=== PATIENT | female | born 1940 | race Caucasian/White ===

== ENCOUNTER 2017-07-08 17:13 | Inpatient (IN) | payer MEDICARE, MEDICAID ==
[~2017-07-08] VITALS: Ht 170.2 cm; Wt 77.0 kg
[~2017-07-08 17:13] MED LIST: ALPR-138 PO; CLOP75 PO; HYDR-3533 PO; METO25 PO
[2017-07-08] MEDS ORDERED: VANCOMYCIN INJ 1,000 MG in SODIUM CHLOR 0.9% 250 ML INJ 250 ML IV STA (17:32)
[2017-07-08] MEDS ORDERED: CEFEPIME INJ 2,000 MG in SODIUM CHLORIDE 0.9% INJ 100 ML IV STA (17:32)
[2017-07-08 17:33] VITALS: BP 140/60; PULSE 102; RESP 22; TEMP 103.1; O2SAT 95
--- NOTE | 2017-07-08 17:35 | PD ---
HPI Chief Complaint: Fever Time Seen by Provider: 17:28 Travel History International Travel<30 days: No Contact w/Intl Traveler<30days: No Traveled to known affect area: No History of Present Illness HPI 76-year-old female with history of CHF, hypertension, anxiety, right lower extremity DVT with stent placement who is on Plavix, presents emergency department for evaluation of acute onset fever today approximately 1 hour ago. Patient states she woke up this morning and had some low back pain. She described as an ache. This persisted lightly throughout the day but did not seem to bother her much. She states that all of a sudden she became tremulous and f had chills and body aches with associated shortness of breath. Denies any recent illnesses. Patient has been well up until today when this happened. Denies any chest pain. Denies any nausea, vomiting, or diarrhea. Patient has no other symptoms to report. PFSH Past Medical History Anxiety: Yes Heart Rhythm Problems: Yes (LBBB) Cardiac Catheterization: Yes (x2) Cardiovascular Problems: Yes (LBBB) Chest Pain: Yes Congestive Heart Failure: Yes Coronary Artery Disease: Yes Diminished Hearing: No Hypertension: Yes Immunizations Current: Yes Menopausal: Yes Ovarian Cysts: Yes Past Surgical History Abdominal Surgery: Yes (STANGULATED BOWEL RESECTION X , 2008) Appendectomy: Yes Body Medical Devices: LEFT WRIST METAL Cholecystectomy: Yes Gynecologic Surgery: Yes (FIBROIDS REMOVED) Hysterectomy: Yes Oral Surgery: Yes (1949 T&A) Tonsillectomy: Yes Other Surgery: Yes (SEPTEMBER 2013 FEMORAL STENT) Social History Alcohol Use: Yes (OCCASIONAL) Tobacco Use: No Substance Use: No Allergies-Medications (Allergen,Severity, Reaction): Coded Allergies: meperidine (Unverified Allergy, Severe, Shortness of Breath, 07/08/17) milk (Unverified Allergy, Intermediate, Migraine, 07/08/17) Reported Meds & Prescriptions Reported Meds & Active Scripts Active Lortab 5 mg/325 mg (Hydrocodone/Acetaminophen 5 mg/325 mg) 1 Tab 1 Tab PO Q6H PRN Plavix (Clopidogrel Bisulfate) 75 Mg Tab 75 Mg PO DAILY Reported Metoprolol Tartrate 25 mg (Metoprolol Tartrate) 25 Mg Tab 1 Tab PO HS Xanax (Alprazolam) 0.25 Mg Tab 0.25 Mg PO Review of Systems Except as stated in HPI: all other systems reviewed are Neg Physical Exam Narrative GENERAL: Well-nourished female patient, no acute distress SKIN: Focused skin assessment warm/dry. HEAD: Atraumatic. Normocephalic. EYES: Pupils equal and round. No scleral icterus. No injection or drainage. ENT: No nasal bleeding or discharge. Mucous membranes pink and moist. NECK: Trachea midline. No JVD. CARDIOVASCULAR: Tachycardic rate and rhythm. No murmur appreciated. RESPIRATORY: No accessory muscle use. Diminished throughout, intermittent faint expiratory wheeze. Breath sounds equal bilaterally. GASTROINTESTINAL: Abdomen soft, non-tender, nondistended. Hepatic and splenic margins not palpable. MUSCULOSKELETAL: No obvious deformities. No clubbing. No cyanosis. No edema. NEUROLOGICAL: Awake and alert. No obvious cranial nerve deficits. Motor grossly within normal limits. Normal speech. PSYCHIATRIC: Appropriate mood and affect; insight and judgment normal. Data Data Last Documented VS Vital Signs Date Time Temp Pulse Resp B/P (MAP) Pulse Ox O2 Delivery O2 Flow Rate FiO2 07/08/17 18:33 102 18 140/60 (86) 98 Nasal Cannula 2.00 07/08/17 17:33 103.1 Orders Orders Sepsis Workup Initiated (07/08/17 ) Electrocardiogram (07/08/17 17:32) Complete Blood Count With Diff (07/08/17 17:32) Comprehensive Metabolic Panel (07/08/17 17:32) Prothrombin Time / Inr (Pt) (07/08/17 17:32) Act Partial Throm Time (Ptt) (07/08/17 17:32) Lactic Acid Sepsis Protocol (07/08/17 17:32) Urinalysis - C+S If Indicated (07/08/17 17:32) Influenzae A/B Antigen (07/08/17 17:32) Blood Culture (07/08/17 17:32) Chest, Single Ap (07/08/17:32) Blood Glucose (07/08/17 17:32) Ecg Monitoring (07/08/17 17:32) Iv Access Insert/Monitor (07/08/17 17:32) Oximetry (07/08/17 17:32) Oxygen Administration (07/08/17 17:32) Vancomycin Inj (Vancomycin Inj) (07/08/17 17:32) Cefepime Inj (Maxipime Inj) (07/08/17 17:32) Acetaminophen (Tylenol) (07/08/17 17:45) Sodium Chlor 0.9% 1000 Ml Inj (Ns 1000 M (07/08/17 17:45) Urine Culture (07/08/17 17:40) Piperacil-Tazo 4.5 Gm Premix (Zosyn 4.5 (07/08/17 18:07) Labs Laboratory Tests Test 07/08/17 17:38 07/08/17 17:40 White Blood Count 4.6 TH/MM3 Red Blood Count 3.19 MIL/MM3 Hemoglobin 10.7 GM/DL Hematocrit 31.5 % Mean Corpuscular Volume 98.8 FL Mean Corpuscular Hemoglobin 33.4 PG Mean Corpuscular Hemoglobin Concent 33.8 % Red Cell Distribution Width 14.4 % Platelet Count 104 TH/MM3 Mean Platelet Volume 9.2 FL Neutrophils (%) (Auto) 91.9 % Lymphocytes (%) (Auto) 6.0 % Monocytes (%) (Auto) 0.5 % Eosinophils (%) (Auto) 1.0 % Basophils (%) (Auto) 0.6 % Neutrophils # (Auto) 4.2 TH/MM3 Lymphocytes # (Auto) 0.3 TH/MM3 Monocytes # (Auto) 0.0 TH/MM3 Eosinophils # (Auto) 0.0 TH/MM3 Basophils # (Auto) 0.0 TH/MM3 CBC Comment DIFF FINAL Differential Comment Prothrombin Time 10.5 SEC Prothromb Time International Ratio 1.0 RATIO Activated Partial Thromboplast Time 21.7 SEC Blood Urea Nitrogen 13 MG/DL Creatinine 0.92 MG/DL Random Glucose 106 MG/DL Total Protein 6.6 GM/DL Albumin 3.3 GM/DL Calcium Level 8.2 MG/DL Alkaline Phosphatase 65 U/L Aspartate Amino Transf (AST/SGOT) 15 U/L Alanine Aminotransferase (ALT/SGPT) 16 U/L Total Bilirubin 0.5 MG/DL Sodium Level 142 MEQ/L Potassium Level 3.8 MEQ/L Chloride Level 110 MEQ/L Carbon Dioxide Level 21.0 MEQ/L Anion Gap 11 MEQ/L Estimat Glomerular Filtration Rate 60 ML/MIN Lactic Acid Level 4.4 mmol/L Urine Color YELLOW Urine Turbidity HAZY Urine pH 5.5 Urine Specific [place] 1.009 Urine Protein 30 mg/dL Urine Glucose (UA) NEG mg/dL Urine Ketones NEG mg/dL Urine Occult Blood SMALL Urine Nitrite POS Urine Bilirubin NEG Urine Urobilinogen LESS THAN 2.0 MG/DL Urine Leukocyte Esterase LARGE Urine RBC 12 /hpf Urine WBC /hpf Urine WBC Clumps FEW Urine Squamous Epithelial Cells 1 /hpf Urine Transitional Epithelial Cells <1 /hpf Urine Renal Epithelial Cells <1 /hpf Urine Bacteria MOD /hpf Urine Mucus FEW /lpf Microscopic Urinalysis Comment CATH-CULTURE IND MDM Medical Decision Making Medical Screen Exam Complete: Yes Emergency Medical Condition: Yes Medical Record Reviewed: Yes Differential Diagnosis Sepsis versus pneumonia versus influenza versus UTI Narrative Course 76-year-old female presents emergency department for evaluation of acute onset fever and chills with body aches approximately 1 hour prior to arrival. Patient appears well. She is tachycardic and febrile here. Sepsis workup was initiated. Patient was given Tylenol to reduce fever. She is given broad- spectrum antibiotics and IV normal saline bolus, however will not be given full amount of sepsis protocol due to history of CHF. Laboratory Tests Test 07/08/17 17:38 07/08/17 17:40 White Blood Count 4.6 TH/MM3 Red Blood Count 3.19 MIL/MM3 Hemoglobin 10.7 GM/DL Hematocrit 31.5 % Mean Corpuscular Volume 98.8 FL Mean Corpuscular Hemoglobin 33.4 PG Mean Corpuscular Hemoglobin Concent 33.8 % Red Cell Distribution Width 14.4 % Platelet Count 104 TH/MM3 Mean Platelet Volume 9.2 FL Neutrophils (%) (Auto) 91.9 % Lymphocytes (%) (Auto) 6.0 % Monocytes (%) (Auto) 0.5 % Eosinophils (%) (Auto) 1.0 % Basophils (%) (Auto) 0.6 % Neutrophils # (Auto) 4.2 TH/MM3 Lymphocytes # (Auto) 0.3 TH/MM3 Monocytes # (Auto) 0.0 TH/MM3 Eosinophils # (Auto) 0.0 TH/MM3 Basophils # (Auto) 0.0 TH/MM3 CBC Comment DIFF FINAL Differential Comment Prothrombin Time 10.5 SEC Prothromb Time International Ratio 1.0 RATIO Activated Partial Thromboplast Time 21.7 SEC Blood Urea Nitrogen 13 MG/DL Creatinine 0.92 MG/DL Random Glucose 106 MG/DL Total Protein 6.6 GM/DL Albumin 3.3 GM/DL Calcium Level 8.2 MG/DL Alkaline Phosphatase 65 U/L Aspartate Amino Transf (AST/SGOT) 15 U/L Alanine Aminotransferase (ALT/SGPT) 16 U/L Total Bilirubin 0.5 MG/DL Sodium Level 142 MEQ/L Potassium Level 3.8 MEQ/L Chloride Level 110 MEQ/L Carbon Dioxide Level 21.0 MEQ/L Anion Gap 11 MEQ/L Estimat Glomerular Filtration Rate 60 ML/MIN Lactic Acid Level 4.4 mmol/L Urine Color YELLOW Urine Turbidity HAZY Urine pH 5.5 Urine Specific [place] 1.009 Urine Protein 30 mg/dL Urine Glucose (UA) NEG mg/dL Urine Ketones NEG mg/dL Urine Occult Blood SMALL Urine Nitrite POS Urine Bilirubin NEG Urine Urobilinogen LESS THAN 2.0 MG/DL Urine Leukocyte Esterase LARGE Urine RBC 12 /hpf Urine WBC /hpf Urine WBC Clumps FEW Urine Squamous Epithelial Cells 1 /hpf Urine Transitional Epithelial Cells <1 /hpf Urine Renal Epithelial Cells <1 /hpf Urine Bacteria MOD /hpf Urine Mucus FEW /lpf Microscopic Urinalysis Comment CATH-CULTURE IND Last Impressions Chest X-Ray 07/08/17 1732 Signed Impressions: Service Date/Time: Saturday, July 08, 2017 17:40 - CONCLUSION: No acute disease. Jaciel Tucker MD I discussed patient with my attending physician who has also reviewed the findings and assessed the patient. Findings were also discussed with the family. Pt is with some dyspnea. This is likely due to a metabolic acidosis. At this time she will not be further evaluated for this. Patient will be admitted to [facility]. Diagnosis Primary Impression: Sepsis Qualified Codes: A41.9 - Sepsis, unspecified organism Additional Impressions: UTI (urinary tract infection) Qualified Codes: N30.01 - Acute cystitis with hematuria Dyspnea Qualified Codes: R06.00 - Dyspnea, unspecified Admitting Information Admitting Physician Requests: Admit Condition: Stable Sonya Gregorio July 08, 2017 17:35
[2017-07-08] MEDS ORDERED: ACETAMINOPHEN 500 MG CPLT PO ONE (17:45)
[2017-07-08] MEDS ORDERED: SODIUM CHLOR 0.9% 1000 ML INJ 1,000 ML IV ONE (17:45)
[2017-07-08 17:52] LABS: AUTOMATED NEUTROPHIL # 4.2 TH/MM3 (1.8-7.7); BASOPHIL % 0.6 % (0.0-2.0); HEMATOCRIT 31.5 % (35.0-46.0); HEMOGLOBIN 10.7 GM/DL (11.6-15.3); LYMPHOCYTE # 0.3 TH/MM3 (1.0-4.8); MEAN CELL VOLUME 98.8 FL (80.0-100.0); MEAN CORPUSCULAR HEMOGLOBIN 33.4 PG (27.0-34.0); MEAN CORPUSCULAR HGB CONC 33.8 % (32.0-36.0); MEAN PLATELET VOLUME 9.2 FL (7.0-11.0); MONO % 0.5 % (0.0-8.0); NEUT % 91.9 % (16.0-70.0); PLATELET COUNT 104 TH/MM3 (150-450); RED BLOOD COUNT 3.19 MIL/MM3 (4.00-5.30); RED CELL DISTRIBUTION WIDTH 14.4 % (11.6-17.2); WHITE BLOOD COUNT 4.6 TH/MM3 (4.0-11.0)
[2017-07-08 17:58] LABS: BACTERIA, URINE MOD /hpf; BILIRUBIN, URINE NEG (NEG); BLOOD, URINE SMALL (NEG); GLUCOSE,URINE NEG (NEG); KETONE, URINE NEG (NEG); MUCUS URINE FEW /lpf (OCC); NITRITE,URINE POS (NEG); PH, URINE 5.5 (5.0-8.5); RENAL EPITHELIAL CELLS <1 /hpf; SQUAMOUS EPITHELIAL CELL URINE 1 /hpf (0-5); TRANSITIONAL EPI CELLS, URINE <1 /hpf; URINE COLOR YELLOW (YELLW/STRAW); URINE LEUKOCYTE ESTERASE LARGE (NEG); WHITE BLOOD CELL CLUMPS FEW
--- NOTE | 2017-07-08 17:59 | RADRPT ---
EXAM DATE/TIME: 07/08/2017 17:40 [place] COMPARISON: No previous studies available for comparison. INDICATIONS : Fever MEDICAL HISTORY : None. SURGICAL HISTORY : None. ENCOUNTER: Initial ACUITY: 1 day PAIN SCORE: 0/10 LOCATION: chest FINDINGS: A single view of the chest demonstrates the lungs to be symmetrically aerated without evidence of mas s, infiltrate or effusion. The cardiomediastinal contours are unremarkable. Osseous structures are intact. CONCLUSION: No acute disease. Jaciel Tucker MD on July 08, 2017 at 17:55 Board Certified Radiologist. This report was verified electronically.
[2017-07-08 18:04] LABS: PROTHROMBIN TIME - PATIENT 10.5 SEC (9.8-11.6)
[2017-07-08] MEDS ORDERED: PIPERACIL-TAZO 4.5 GM PREMIX 100 ML IV STA (18:07)
[2017-07-08 18:17] LABS: ALBUMIN 3.3 GM/DL (3.4-5.0); ALT (GPT) 16 U/L (10-53); AST (GOT) 15 U/L (15-37); BLOOD UREA NITROGEN 13 MG/DL (7-18); CALCIUM 8.2 MG/DL (8.5-10.1); CHLORIDE 110 MEQ/L (98-107); CREATININE 0.92 MG/DL (0.50-1.00); GLOMERULAR FILTRATION RATE 60 ML/MIN (>89); GLUCOSE,RANDOM 106 MG/DL (74-106); SODIUM (NA) 142 MEQ/L (136-145)
[2017-07-08 18:19] LABS: ALKALINE PHOSPHATASE 65 U/L (45-117); TOTAL BILIRUBIN ADULT 0.5 MG/DL (0.2-1.0); TOTAL PROTEIN 6.6 GM/DL (6.4-8.2)
[2017-07-08 18:26] LABS: LACTIC ACID SEPSIS PROTOCOL 4.4 mmol/L (0.4-2.0)
[2017-07-08 18:33] VITALS: BP 140/60; PULSE 102; RESP 18; O2SAT 98
--- NOTE | 2017-07-08 18:43 | PD ---
Data Data Last Documented VS Vital Signs Date Time Temp Pulse Resp B/P (MAP) Pulse Ox O2 Delivery O2 Flow Rate FiO2 07/08/17 18:33 102 18 140/60 (86) 98 Nasal Cannula 2.00 07/08/17 17:33 103.1 Orders Orders Sepsis Workup Initiated (07/08/17 ) Electrocardiogram (07/08/17 17:32) Complete Blood Count With Diff (07/08/17 17:32) Comprehensive Metabolic Panel (07/08/17 17:32) Prothrombin Time / Inr (Pt) (07/08/17 17:32) Act Partial Throm Time (Ptt) (07/08/17 17:32) Lactic Acid Sepsis Protocol (07/08/17 17:32) Urinalysis - C+S If Indicated (07/08/17:32) Influenzae A/B Antigen (07/08/17 17:32) Blood Culture (07/08/17 17:32) Chest, Single Ap (07/08/17 17:32) Blood Glucose (07/08/17 17:32) Ecg Monitoring (07/08/17 17:32) Iv Access Insert/Monitor (07/08/17 17:32) Oximetry (07/08/17 17:32) Oxygen Administration (07/08/17 17:32) Vancomycin Inj (Vancomycin Inj) (07/08/17 17:32) Cefepime Inj (Maxipime Inj) (07/08/17 17:32) Acetaminophen (Tylenol) (07/08/17 17:45) Sodium Chlor 0.9% 1000 Ml Inj (Ns 1000 M (07/08/17 17:45) Urine Culture (07/08/17 17:40) Piperacil-Tazo 4.5 Gm Premix (Zosyn 4.5 (07/08/17 18:07) Labs Laboratory Tests Test 07/08/17 17:38 07/08/17 17:40 White Blood Count 4.6 TH/MM3 Red Blood Count 3.19 MIL/MM3 Hemoglobin 10.7 GM/DL Hematocrit 31.5 % Mean Corpuscular Volume 98.8 FL Mean Corpuscular Hemoglobin 33.4 PG Mean Corpuscular Hemoglobin Concent 33.8 % Red Cell Distribution Width 14.4 % Platelet Count 104 TH/MM3 Mean Platelet Volume 9.2 FL Neutrophils (%) (Auto) 91.9 % Lymphocytes (%) (Auto) 6.0 % Monocytes (%) (Auto) 0.5 % Eosinophils (%) (Auto) 1.0 % Basophils (%) (Auto) 0.6 % Neutrophils # (Auto) 4.2 TH/MM3 Lymphocytes # (Auto) 0.3 TH/MM3 Monocytes # (Auto) 0.0 TH/MM3 Eosinophils # (Auto) 0.0 TH/MM3 Basophils # (Auto) 0.0 TH/MM3 CBC Comment DIFF FINAL Differential Comment Prothrombin Time 10.5 SEC Prothromb Time International Ratio 1.0 RATIO Activated Partial Thromboplast Time 21.7 SEC Blood Urea Nitrogen 13 MG/DL Creatinine 0.92 MG/DL Random Glucose 106 MG/DL Total Protein 6.6 GM/DL Albumin 3.3 GM/DL Calcium Level 8.2 MG/DL Alkaline Phosphatase 65 U/L Aspartate Amino Transf (AST/SGOT) 15 U/L Alanine Aminotransferase (ALT/SGPT) 16 U/L Total Bilirubin 0.5 MG/DL Sodium Level 142 MEQ/L Potassium Level 3.8 MEQ/L Chloride Level 110 MEQ/L Carbon Dioxide Level 21.0 MEQ/L Anion Gap 11 MEQ/L Estimat Glomerular Filtration Rate 60 ML/MIN Lactic Acid Level 4.4 mmol/L Urine Color YELLOW Urine Turbidity HAZY Urine pH 5.5 Urine Specific [place] 1.009 Urine Protein 30 mg/dL Urine Glucose (UA) NEG mg/dL Urine Ketones NEG mg/dL Urine Occult Blood SMALL Urine Nitrite POS Urine Bilirubin NEG Urine Urobilinogen LESS THAN 2.0 MG/DL Urine Leukocyte Esterase LARGE Urine RBC 12 /hpf Urine WBC /hpf Urine WBC Clumps FEW Urine Squamous Epithelial Cells 1 /hpf Urine Transitional Epithelial Cells <1 /hpf Urine Renal Epithelial Cells <1 /hpf Urine Bacteria MOD /hpf Urine Mucus FEW /lpf Microscopic Urinalysis Comment CATH-CULTURE IND MDM Supervised Visit with GENNARO: Yes Narrative Course I, Dr. Ha, have reviewed the advance practice practitioner's documentation and am in agreement, met with the patient face to face, made the diagnosis, and the medical decision making was done by me. *My assessment and Findings: This patient came in for fever. Extensive workup was done. She has elevated lactate. Cultures were done and she has significant urinary infection with innumerable white cells. Antibiotics were given. She will be admitted. She has sats at 97% and at this point not reporting dyspnea. She has had some intermittent mild dyspnea today. No pleuritic chest pain. Wiley Ha MD July 08, 2017 18:43
[2017-07-08] MEDS ORDERED: PLAV75TA29 PO (18:56)
[2017-07-08] MEDS ORDERED: METO25TA3 PO (18:56)
[2017-07-08] MEDS ORDERED: ALPR.25 PO (18:56)
[2017-07-08] MEDS ORDERED: NALOXONE HCL 0.4 MG/ML AMP IV PUSH PRN (20:00)
[2017-07-08] MEDS ORDERED: HEPARIN SODIUM - SQ 10,000 UNITS/ML VIAL SQ SCH (20:00)
[2017-07-08] MEDS ORDERED: SODIUM CHLORIDE 0.9% FLUSH 10 ML FLUSH IV FLUSH PRN (20:00)
--- NOTE | 2017-07-08 20:23 | HHI.HP ---
HPI Service [facility] Primary Care Physician Cooper Colon MD Admission Diagnosis SEPSIS; UTI Diagnoses: Travel History International Travel<30 Days: No Contact w/Intl Traveler <30 Da: No Traveled to Known Affected Are: No History of Present Illness 76-year-old female with a past medical history significant for CHF (no recent echo for comparison), peripheral vascular disease, hypertension and anxiety presents to the emergency department for evaluation of sudden onset severe chills/fever. The patient reports that approximately 4 PM this afternoon she had severe shaking and felt as if she could not get warm. She also endorses a shortness of breath and chest pain/tightness that she describes as a substernal pressure that occurred during this time. The patient denies any cough. No abdominal pain. No nausea/vomiting/diarrhea. No dysuria. No lateralizing signs/symptoms. Review of Systems Except as stated in HPI: all other systems reviewed are Neg Past Family Social History Past Medical History CHF Hypertension Anxiety Peripheral vascular disease Past Surgical History Right lower extremity stent Reported Medications Reported Meds & Active Scripts Active Reported Metoprolol Tartrate 25 Mg Tab 25 Mg PO HS Xanax (Alprazolam) 0.25 Mg Tab 0.25 Mg PO TID PRN Plavix (Clopidogrel Bisulfate) 75 Mg Tab 75 Mg PO DAILY Allergies: Coded Allergies: meperidine (Unverified Allergy, Severe, Shortness of Breath, 07/08/17) milk (Unverified Allergy, Intermediate, Migraine, 07/08/17) Family History Mother with CAD Social History Smokes approximately half a pack per day. Occasional alcohol. Denies illicit drugs. Physical Exam Vital Signs Vital Signs Date Time Temp Pulse Resp B/P (MAP) Pulse Ox O2 Delivery O2 Flow Rate FiO2 07/08/17 18:33 102 18 140/60 (86) 98 Nasal Cannula 2.00 07/08/17 18:33 102 18 140/60 (86) 98 Nasal Cannula 2.00 07/08/17 18:33 98 Nasal Cannula 2.00 07/08/17 17:33 103.1 102 22 140/60 (86) 95 Physical Exam GENERAL: female lying in bed SKIN: No rashes, ecchymoses or lesions. Cool and dry. HEAD: Atraumatic. Normocephalic. No temporal or scalp tenderness. EYES: Pupils equal round and reactive. Extraocular motions intact. No scleral icterus. No injection or drainage. ENT: Nose without bleeding, purulent drainage or septal hematoma. Throat without erythema, tonsillar hypertrophy or exudate. Uvula midline. Airway patent. NECK: Trachea midline. No JVD or lymphadenopathy. Supple, nontender, no meningeal signs. CARDIOVASCULAR: Regular rate and rhythm without murmurs, gallops, or rubs. RESPIRATORY: Clear to auscultation. Breath sounds equal bilaterally. No wheezes , rales, or rhonchi. GASTROINTESTINAL: Abdomen soft, non-tender, nondistended. No hepato-splenomegaly , or palpable masses. No guarding. MUSCULOSKELETAL: Extremities without clubbing, cyanosis, or edema. No joint tenderness, effusion, or edema noted. No calf tenderness. NEUROLOGICAL: Awake and alert. Cranial nerves II through XII intact. Motor and sensory grossly within normal limits. Normal speech. Laboratory Laboratory Tests Test 07/08/17 17:38 07/08/17 17:40 White Blood Count 4.6 Red Blood Count 3.19 Hemoglobin 10.7 Hematocrit 31.5 Mean Corpuscular Volume 98.8 Mean Corpuscular Hemoglobin 33.4 Mean Corpuscular Hemoglobin Concent 33.8 Red Cell Distribution Width 14.4 Platelet Count 104 Mean Platelet Volume 9.2 Neutrophils (%) (Auto) 91.9 Lymphocytes (%) (Auto) 6.0 Monocytes (%) (Auto) 0.5 Eosinophils (%) (Auto) 1.0 Basophils (%) (Auto) 0.6 Neutrophils # (Auto) 4.2 Lymphocytes # (Auto) 0.3 Monocytes # (Auto) 0.0 Eosinophils # (Auto) 0.0 Basophils # (Auto) 0.0 CBC Comment DIFF FINAL Differential Comment Prothrombin Time 10.5 Prothromb Time International Ratio 1.0 Activated Partial Thromboplast Time 21.7 Blood Urea Nitrogen 13 Creatinine 0.92 Random Glucose 106 Total Protein 6.6 Albumin 3.3 Calcium Level 8.2 Alkaline Phosphatase 65 Aspartate Amino Transf (AST/SGOT) 15 Alanine Aminotransferase (ALT/SGPT) 16 Total Bilirubin 0.5 Sodium Level 142 Potassium Level 3.8 Chloride Level 110 Carbon Dioxide Level 21.0 Anion Gap 11 Estimat Glomerular Filtration Rate 60 Lactic Acid Level 4.4 Urine Color YELLOW Urine Turbidity HAZY Urine pH 5.5 Urine Specific [place] 1.009 Urine Protein 30 Urine Glucose (UA) NEG Urine Ketones NEG Urine Occult Blood SMALL Urine Nitrite POS Urine Bilirubin NEG Urine Urobilinogen LESS THAN 2.0 Urine Leukocyte Esterase LARGE Urine RBC 12 Urine WBC Urine WBC Clumps FEW Urine Squamous Epithelial Cells 1 Urine Transitional Epithelial Cells <1 Urine Renal Epithelial Cells <1 Urine Bacteria MOD Urine Mucus FEW Microscopic Urinalysis Comment CATH-CULTURE IND Date/Time Source Procedure Growth Status 07/08/17 17:35 Blood Peripheral Aerobic Blood Culture Pending Received 07/08/17 17:35 Blood Peripheral Anaerobic Blood Culture Pending Received 07/08/17 18:15 Nasal Washing Influenza Types A,B Antigen (DIONICIO) - Final Positive For Flu B Antigen Complete 07/08/17 17:40 Urine Catheterized Urine Urine Culture Pending Received Result Diagram: 07/08/17 1738 07/08/17 1738 Caprini VTE Risk Assessment Caprini VTE Risk Assessment: Mod/High Risk (score >= 2) Caprini Risk Assessment Model Point Value = 1 Point Value = 2 Point Value = 3 Point Value = 5 Age 41-60 Minor surgery BMI > 25 kg/m2 Swollen legs Varicose veins or History of unexplained or recurrent spontaneous Oral contraceptives or hormone replacement Sepsis (< 1 month) Serious lung disease, including pneumonia (< 1 month) Abnormal pulmonary function Acute myocardial infarction Congestive heart failure (< 1 month) History of inflammatory bowel disease Medical patient at bed rest Age 61-74 Arthroscopic surgery Major open surgery (> 45 min) Laparoscopic surgery (> 45 min) Malignancy Confined to bed (> 72 hours) Immobilizing plaster cast Central venous access Age >= 75 History of VTE Family history of VTE Factor V Leiden Prothrombin [id number] Lupus anticoagulant Anticardiolipin antibodies Elevated serum homocysteine Heparin-induced thrombocytopenia Other congenital or acquired thrombophilia Stroke (< 1 month) Elective arthroplasty Hip, pelvis, or leg fracture Acute spinal cord injury (< 1 month) Prophylaxis Regimen Total Risk Factor Score Risk Level Prophylaxis Regimen 0-1 Low Early ambulation 2 Moderate Order ONE of the following: *Sequential Compression Device (SCD) *Heparin 5000 units SQ BID 3-4 Higher Order ONE of the following medications: *Heparin 5000 units SQ TID *Enoxaparin/Lovenox 40 mg SQ daily (WT < 150 kg, CrCl > 30 mL/min) *Enoxaparin/Lovenox 30 mg SQ daily (WT < 150 kg, CrCl > 10-29 mL/min) *Enoxaparin/Lovenox 30 mg SQ BID (WT < 150 kg, CrCl > 30 mL/min) AND/OR *Sequential Compression Device (SCD) 5 or more Highest Order ONE of the following medications: *Heparin 5000 units SQ TID (Preferred with Epidurals) *Enoxaparin/Lovenox 40 mg SQ daily (WT < 150 kg, CrCl > 30 mL/min) *Enoxaparin/Lovenox 30 mg SQ daily (WT < 150 kg, CrCl > 10-29 mL/min) *Enoxaparin/Lovenox 30 mg SQ BID (WT < 150 kg, CrCl > 30 mL/min) AND *Sequential Compression Device (SCD) Assessment and Plan Assessment and Plan Assessment/plan: 1. Sepsis Patient positive for influenza B UA consistent with urinary tract infection Lactic acid 4.4, patient febrile and tachycardic Rocephin for urinary tract infection Tamiflu IV fluid hydration Repeat lactic acid pending 2. Chest pain EKG shows normal sinus rhythm with left bundle branch block, no ST segment elevations or depressions, personally reviewed Initial troponin pending ACS rule out pending; serial troponins/EKGs 3. Influenza Plan as above 4. UTI Plan as above 5. Hypertension Continue home metoprolol 6. CHF Patient reports she had one episode of CHF many years ago, is not on any diuretics Chest x-ray without signs of heart failure 7. Anxiety Continue home Xanax 8. Peripheral vascular disease Continue home Plavix FEN Heart healthy diet Electrolytes: Monitor and replete as needed Heparin NS at 100 cc/hour Physician Certification 2 Midnight Certification Type: Admission for Inpatient Services Order for Inpatient Services The services are ordered in accordance with Medicare regulations or non- Medicare payer requirements, as applicable. In the case of services not specified as inpatient-only, they are appropriately provided as inpatient services in accordance with the 2-midnight benchmark. Estimated LOS (days): 2 2 days is the estimated time the patient will need to remain in the hospital, assuming treatment plan goals are met and no additional complications. Post-Hospital Plan: Not yet determined Tia Fernando MD July 08, 2017 20:23
[2017-07-08 20:36] VITALS: BP 96/51; PULSE 84; RESP 18; O2SAT 96
[2017-07-08] MEDS: OSELTAMIVIR PHOSPHATE 75 MG CAP PO SCH (21:15)
[2017-07-08] MEDS: METOPROLOL TARTRATE 25 MG TAB PO SCH (21:17)
[2017-07-08] MEDS: SODIUM CHLORIDE 0.9% FLUSH 10 ML FLUSH IV FLUSH SCH (21:22)
[2017-07-08] MEDS: SODIUM CHLOR 0.9% 1000 ML INJ 1,000 ML IV SCH (21:22)
[2017-07-08 21:36] VITALS: BP 92/52; PULSE 79; RESP 17; O2SAT 96
[2017-07-08 22:13] LABS: TROPONIN I 1.81 NG/ML (0.02-0.05)
[2017-07-08 23:36] VITALS: BP 88/50; PULSE 74; RESP 16; TEMP 99.4; O2SAT 98
[2017-07-09] VITALS (18 sets, daily range): BP systolic 105–140; BP diastolic 55–64; PULSE 67–82; RESP 16–32; TEMP 98.4–101.3; O2SAT 88–100
[2017-07-09] MEDS ORDERED: SODIUM CHLORID 0.9% 500 ML INJ 500 ML IV ONE (00:15)
[2017-07-09] MEDS ORDERED: HEPARIN SODIUM - IV 10,000 UNITS/10 ML VIAL IV PUSH ONE (00:15)
[2017-07-09] MEDS: cefTRIAXone INJ 1,000 MG in SODIUM CHLORIDE 0.9% INJ 100 ML IV SCH (00:29)
[2017-07-09 00:50] LABS: HEMATOCRIT 27.7 % (35.0-46.0); HEMOGLOBIN 9.5 GM/DL (11.6-15.3); MEAN CELL VOLUME 97.1 FL (80.0-100.0); MEAN CORPUSCULAR HEMOGLOBIN 33.3 PG (27.0-34.0); MEAN CORPUSCULAR HGB CONC 34.3 % (32.0-36.0); MEAN PLATELET VOLUME 9.2 FL (7.0-11.0); PLATELET COUNT 96 TH/MM3 (150-450); RED BLOOD COUNT 2.86 MIL/MM3 (4.00-5.30); RED CELL DISTRIBUTION WIDTH 14.2 % (11.6-17.2); WHITE BLOOD COUNT 16.2 TH/MM3 (4.0-11.0)
[2017-07-09] MEDS ORDERED: CHLORHEXIDINE GLUCONATE 2 % 1 PACK (2 CLOTHS)(extra cloths) TOPICAL PRN (02:30)
[2017-07-09 02:56] LABS: AUTOMATED NEUTROPHIL # 13.6 TH/MM3 (1.8-7.7); BASOPHIL # 0.1 TH/MM3 (0-0.2); BASOPHIL % 0.6 % (0.0-2.0); EOSINOPHIL % 0.2 % (0.0-4.0); HEMOGLOBIN 10.1 GM/DL (11.6-15.3); LYMPH % 5.7 % (9.0-44.0); LYMPHOCYTE # 0.8 TH/MM3 (1.0-4.8); MEAN CELL VOLUME 98.2 FL (80.0-100.0); MEAN CORPUSCULAR HEMOGLOBIN 33.1 PG (27.0-34.0); MEAN CORPUSCULAR HGB CONC 33.7 % (32.0-36.0); MEAN PLATELET VOLUME 9.2 FL (7.0-11.0); MONO % 1.6 % (0.0-8.0); MONOCYTE # 0.2 TH/MM3 (0-0.9); NEUT % 91.9 % (16.0-70.0); PLATELET COUNT 98 TH/MM3 (150-450); RED BLOOD COUNT 3.05 MIL/MM3 (4.00-5.30); RED CELL DISTRIBUTION WIDTH 14.8 % (11.6-17.2); WHITE BLOOD COUNT 14.8 TH/MM3 (4.0-11.0)
[2017-07-09 03:18] LABS: INTERNATIONAL NORMALIZED RATIO 1.1 RATIO; PROTHROMBIN TIME - PATIENT 11.4 SEC (9.8-11.6)
[2017-07-09 03:22] LABS: BICARBONATE 21.1 MEQ/L (21.0-32.0); CALCIUM 7.7 MG/DL (8.5-10.1); CREATININE 0.79 MG/DL (0.50-1.00)
[2017-07-09 03:38] LABS: TROPONIN I 2.35 NG/ML (0.02-0.05)
[2017-07-09] MEDS: HEPARIN-D5W 25,000 U/250 ML 250 ML IV PRN (03:49)
[2017-07-09] MEDS: MORPHINE SULFATE 4 MG/ML INJ IV PUSH PRN ×4 (03:54→21:18)
[2017-07-09] MEDS: ONDANSETRON ODT 4 MG TAB SL PRN (03:55)
[2017-07-09] MEDS: CHLORHEXIDINE GLUCONATE 2 % 1 PACK (2 CLOTHS)(taper/protocol) TOPICAL SCH (04:00)
[2017-07-09] MEDS: SODIUM CHLOR 0.9% 1000 ML INJ 1,000 ML IV SCH ×2 (04:11→12:34)
[2017-07-09] MEDS ORDERED: HEPARIN SODIUM - IV 10,000 UNITS/10 ML VIAL IV PUSH PRN ×2 (06:15)
[2017-07-09 06:56] LABS: BANDS 19 % (0-6); LYMPHOCYTES 7 % (9-44); NEUTROPHIL # MANUAL DIFF 13.8 TH/MM3 (1.8-7.7); POLYS (SEG NEUTROPHILS) 74 % (16-70); TOXIC VACUOLATION PRESENT (NONE SEEN)
[2017-07-09] MEDS: OSELTAMIVIR PHOSPHATE 75 MG CAP PO SCH ×2 (09:05→21:14)
[2017-07-09] MEDS: CLOPIDOGREL 75 MG TAB PO SCH (09:06)
[2017-07-09] MEDS: SODIUM CHLORIDE 0.9% FLUSH 10 ML FLUSH IV FLUSH SCH ×2 (09:06→21:00)
[2017-07-09] MEDS: ACETAMINOPHEN 325 MG TAB PO PRN (12:32)
[2017-07-09 12:55] LABS: TROPONIN I 1.86 NG/ML (0.02-0.05)
--- NOTE | 2017-07-09 20:52 | EKG ---
Date Performed: 07/08/2017 Time Performed: 17:23:57 PTAGE: 76 years EKG: Sinus rhythm MARKED LEFT AXIS DEVIATION LEFT BUNDLE BRANCH BLOCK ABNORMAL ECG PREVIOUS TRACING : 01/27/2014 13.58.30 DOCTOR: Manny Shaffer Interpretating Date/Time 07/09/2017 20:50:22
--- NOTE | 2017-07-09 20:54 | EKG ---
Date Performed: 07/09/2017 Time Performed: 07:09:35 PTAGE: 76 years EKG: Sinus rhythm WITH OCCASIONAL SUPRAVENTRICULAR PREMATURE COMPLEXES MARKED LEFT AXIS DEVIATION LEFT BUNDLE BRANCH B LOCK Prolonged corrected QT interval. ABNORMAL ECG PREVIOUS TRACING : 07/09/2017 02.34.24 DOCTOR: Manny Shaffer Interpretating Date/Time 07/09/2017 20:53:18
--- NOTE | 2017-07-09 20:54 | EKG ---
Date Performed: 07/09/2017 Time Performed: 02:34:24 PTAGE: 76 years EKG: Sinus rhythm with PAC(s). Left axis deviation Left bundle branch block. Possible anteroseptal infarct - age undet ermined Prolonged corrected QT interval. Abnormal ECG PREVIOUS TRACING : 07/08/2017 17.23.57 DOCTOR: Manny Shaffer Interpretating Date/Time 07/09/2017 20:52:26
[2017-07-09] MEDS: METOPROLOL TARTRATE 25 MG TAB PO SCH (21:14)
[2017-07-10] VITALS (18 sets, daily range): BP systolic 115–144; BP diastolic 56–88; PULSE 67–86; RESP 23–40; TEMP 98.1–99.6; O2SAT 88–99
[2017-07-10] MEDS: cefTRIAXone INJ 1,000 MG in SODIUM CHLORIDE 0.9% INJ 100 ML IV SCH ×2
[2017-07-10] MEDS: SODIUM CHLOR 0.9% 1000 ML INJ 1,000 ML IV SCH ×3 (00:01→21:49)
[2017-07-10] MEDS: CHLORHEXIDINE GLUCONATE 2 % 1 PACK (2 CLOTHS)(taper/protocol) TOPICAL SCH (03:14)
[2017-07-10] MEDS: HEPARIN-D5W 25,000 U/250 ML 250 ML IV PRN (04:46)
--- NOTE | 2017-07-10 07:34 | HHI.PR ---
Subjective Remarks late entry - patient seen on 07/09 at 6 pm Case discussed w rn Patient still febrile c/o chills and feeling cold. other vital signs stable. Objective Vitals Vital Signs Date Time Temp Pulse Resp B/P (MAP) Pulse Ox O2 Delivery O2 Flow Rate FiO2 07/10/17 04:00 98.8 80 30 144/66 (92) 88 07/10/17 01:18 93 Nasal Cannula 5.00 07/10/17 00:00 98.9 69 24 117/56 (76) 93 07/09/17 20:00 99.1 80 22 140/63 (88) 96 07/09/17 18:00 82 07/09/17 17:00 77 27 129/59 (82) 88 07/09/17 17:00 77 07/09/17 17:00 26 07/09/17 16:30 75 25 126/58 (80) 95 07/09/17 16:00 72 07/09/17 16:00 99.7 72 26 114/56 (75) 94 07/09/17 15:30 77 31 110/60 (77) 94 07/09/17 15:00 69 07/09/17 15:00 69 25 126/58 (80) 96 07/09/17 14:30 68 19 109/58 (75) 97 07/09/17 14:00 99.2 76 29 136/58 (84) 93 07/09/17 14:00 74 07/09/17 13:30 79 32 114/56 (75) 95 07/09/17 13:00 74 27 114/55 (74) 97 07/09/17 13:00 74 07/09/17 12:00 75 07/09/17 12:00 101.3 75 20 110/56 (74) 98 07/09/17 11:00 76 07/09/17 10:00 73 07/09/17 08:00 67 07/09/17 08:00 99.6 67 20 126/60 (82) 99 I/O 07/09/17 07/09/17 07/09/17 07/10/17 07/10/17 07/10/17 07:00 15:00 23:00 07:00 15:00 23:00 Intake Total 1406 ml 240 ml 1853 ml Output Total 600 ml 300 ml 800 ml Balance 806 ml -60 ml 1053 ml Intake Oral 240 ml 240 ml 240 ml IV Total 1166 ml 1613 ml Output Urine Total 600 ml 300 ml 800 ml # Voids 2 # Bowel Movements 0 0 0 Result Diagram: 07/09/17 0245 07/09/17 0245 Imaging Last Impressions Chest X-Ray 07/08/17 6342 Signed Impressions: Service Date/Time: Saturday, July 08, 2017 17:40 - CONCLUSION: No acute disease. Jaciel Tucker MD Objective Remarks GENERAL: female lying in bed + chills SKIN: No rashes, ecchymoses or lesions. Cool and dry. HEAD: Atraumatic. Normocephalic. No temporal or scalp tenderness. EYES: Pupils equal round and reactive. Extraocular motions intact. No scleral icterus. No injection or drainage. ENT: Nose without bleeding, purulent drainage or septal hematoma. Throat without erythema, tonsillar hypertrophy or exudate. Uvula midline. Airway patent. NECK: Trachea midline. No JVD or lymphadenopathy. Supple, nontender, no meningeal signs. CARDIOVASCULAR: Regular rate and rhythm without murmurs, gallops, or rubs. RESPIRATORY: Clear to auscultation. Breath sounds equal bilaterally. No wheezes , rales, or rhonchi. GASTROINTESTINAL: Abdomen soft, non-tender, nondistended. No hepato-splenomegaly , or palpable masses. No guarding. MUSCULOSKELETAL: Extremities without clubbing, cyanosis, or edema. No joint tenderness, effusion, or edema noted. No calf tenderness. NEUROLOGICAL: Awake and alert. Cranial nerves II through XII intact. Motor and sensory grossly within normal limits. Normal speech. A/P Assessment and Plan 1. Sepsis Patient positive for influenza B UA consistent with urinary tract infection Lactic acid 4.4, patient febrile and tachycardic Rocephin for urinary tract infection Tamiflu IV fluid hydration Repeat lactic acid pending 07/09 Lactic acid down to normal range. Continue supportive therapy w Iv Fluids, Tamiflu. 2. Chest pain EKG shows normal sinus rhythm with left bundle branch block, no ST segment elevations or depressions, personally reviewed Initial troponin pending 07/09 cardiology consulted. Patient noted to have a left bundle branch block and elevated troponins which peaked at 2.35 and now are down trending. Recommended continuation of a heparin drip, Plavix and metoprolol. Follow-up cardiology recommendations. 3. Influenza Plan as above 4. UTI Plan as above 5. Hypertension Continue home metoprolol 6. CHF Patient reports she had one episode of CHF many years ago, is not on any diuretics Chest x-ray without signs of heart failure 7. Anxiety Continue home Xanax 8. Peripheral vascular disease Continue home Plavix FEN Heart healthy diet Electrolytes: Monitor and replete as needed Heparin NS at 100 cc/hour Discharge Planning Melissa to monitor in the intensive care unit. Modesto Moreno MD July 10, 2017 07:34
[2017-07-10] MEDS: SODIUM CHLORIDE 0.9% FLUSH 10 ML FLUSH IV FLUSH SCH ×2 (07:53→21:48)
[2017-07-10] MEDS: CLOPIDOGREL 75 MG TAB PO SCH (07:53)
[2017-07-10] MEDS: OSELTAMIVIR PHOSPHATE 75 MG CAP PO SCH ×2 (07:53→21:48)
[2017-07-10] MEDS: MORPHINE SULFATE 4 MG/ML INJ IV PUSH PRN ×3 (09:30→21:48)
--- NOTE | 2017-07-10 09:49 | MB ---
cc: Anastasia Kim MD DATE: 07/09/2017 HISTORY OF PRESENT ILLNESS: This is a 76-year-old white female with history of congestive heart failure, peripheral vascular disease and hypertension, presented with sudden onset of fevers and chills. She also has had shortness of breath, substernal chest tightness at the same time. She has not had any recent episodes of angina or congestive heart failure. PAST MEDICAL HISTORY: Positive for congestive heart failure, hypertension, anxiety, peripheral vascular disease, right lower extremity stenting. MEDICATIONS: Metoprolol, Xanax, Plavix. ALLERGIES: MEPERIDINE AND MILK. SOCIAL HISTORY: The patient smokes 1/2 pack a day. She drinks alcohol occasionally. FAMILY HISTORY: Positive for heart disease in her mother. REVIEW OF SYSTEMS: Otherwise negative. PHYSICAL EXAMINATION: VITAL SIGNS: Blood pressure 129/59, pulse 77 and regular. HEENT: Negative, 2+ carotid upstrokes, no bruits. LUNGS: Clear. HEART: Regular with no murmur, gallop or rub. ABDOMEN: Soft. No bruits. EXTREMITIES: Without edema. 2+ distal pulses. NEUROLOGIC: Grossly intact. STUDY: EKG was reviewed and showed normal sinus rhythm, left axis and left bundle branch block. LABORATORY DATA: Hemoglobin 10.1, potassium 3.5, creatinine 0.8. Troponin 1.81, 2.35 and 1.86. CK 79, 147 and 187. DIAGNOSES: 1. Sepsis. 2. Urinary tract infection. 3. Influenza B. 4. Chest pain. 5. Left bundle branch block. 6. Elevated troponin. 7. Hypertension. 8. Congestive heart failure. 9. Peripheral vascular disease. 10. Smoking cessation. PLAN: will be monitored in the ICU. We will continue antibiotics for sepsis and also therapy for influenza. Her cardiac enzymes are not elevated, but are not significantly trending at this time. We will continue monitoring on telemetry. We will continue IV heparin , Plavix and metoprolol. I will follow her for cardiology during her hospitalization. MD NICOLA Nunez/LAURA , 05:21 PM , 05:56 PM
--- NOTE | 2017-07-10 11:51 | HHI.PR ---
Subjective Remarks Deferred entry, the patient was seen earlier at 9:40 AM. The patient denies chest pain or shortness of breath. The patient complains of generalized muscle aches and fatigue. Denies current fevers or chills. Last febrile episode was yesterday around noon. Denies diarrhea, nausea or vomiting. Objective Vitals Vital Signs Date Time Temp Pulse Resp B/P (MAP) Pulse Ox O2 Delivery O2 Flow Rate FiO2 07/10/17 09:00 77 07/10/17 09:00 77 26 127/62 (83) 94 07/10/17 08:00 73 07/10/17 08:00 98.4 73 28 125/88 (100) 93 07/10/17 07:52 94 Nasal Cannula 5.00 07/10/17 07:00 74 26 124/62 (82) 94 07/10/17 07:00 74 07/10/17 04:00 98.8 80 30 144/66 (92) 88 07/10/17 01:18 93 Nasal Cannula 5.00 07/10/17 00:00 98.9 69 24 117/56 (76) 93 07/09/17 20:00 99.1 80 22 140/63 (88) 96 07/09/17 18:00 82 07/09/17 17:00 77 27 129/59 (82) 88 07/09/17 17:00 77 07/09/17 17:00 26 07/09/17 16:30 75 25 126/58 (80) 95 07/09/17 16:00 72 07/09/17 16:00 99.7 72 26 114/56 (75) 94 07/09/17 15:30 77 31 110/60 (77) 94 07/09/17 15:00 69 07/09/17 15:00 69 25 126/58 (80) 96 07/09/17 14:30 68 19 109/58 (75) 97 07/09/17 14:00 99.2 76 29 136/58 (84) 93 07/09/17 14:00 74 07/09/17 13:30 79 32 114/56 (75) 95 07/09/17 13:00 74 27 114/55 (74) 97 07/09/17 13:00 74 07/09/17 12:00 75 5/14/18 12:00 101.3 75 20 110/56 (87) 98 I/O 07/09/17 07/09/17 07/09/17 07/10/17 07/10/17 07/10/17 06:59 14:59 22:59 06:59 14:59 22:59 Intake Total 1406 ml 240 ml 1853 ml 1000 ml Output Total 600 ml 300 ml 800 ml Balance 806 ml -60 ml 1053 ml 1000 ml Intake Oral 240 ml 240 ml 240 ml IV Total 1166 ml 1613 ml 1000 ml Output Urine Total 600 ml 300 ml 800 ml # Voids 2 # Bowel Movements 0 0 0 Result Diagram: 07/09/17 0245 07/09/17 0245 Imaging Last Impressions Chest X-Ray 07/08/17 9772 Signed Impressions: Service Date/Time: Saturday, July 08, 2017 17:40 - CONCLUSION: No acute disease. Jaciel Tucker MD Objective Remarks GENERAL: female lying in bed, nad SKIN: No rashes, ecchymoses or lesions. Cool and dry. HEAD: Atraumatic. Normocephalic. No temporal or scalp tenderness. EYES: Pupils equal round and reactive. Extraocular motions intact. No scleral icterus. No injection or drainage. ENT: Nose without bleeding, purulent drainage or septal hematoma. Throat without erythema, tonsillar hypertrophy or exudate. Uvula midline. Airway patent. NECK: Trachea midline. No JVD or lymphadenopathy. Supple, nontender, no meningeal signs. CARDIOVASCULAR: Regular rate and rhythm without murmurs, gallops, or rubs. RESPIRATORY: Clear to auscultation. Breath sounds equal bilaterally. No wheezes , rales, or rhonchi. GASTROINTESTINAL: Abdomen soft, non-tender, nondistended. No hepato-splenomegaly , or palpable masses. No guarding. MUSCULOSKELETAL: Extremities without clubbing, cyanosis, or edema. No joint tenderness, effusion, or edema noted. No calf tenderness. NEUROLOGICAL: Awake and alert. Cranial nerves II through XII intact. Motor and sensory grossly within normal limits. Normal speech. A/P Problem List: (1) Sepsis ICD Code: A41.9 - Sepsis, unspecified organism Status: Acute Plan: Sepsis likely secondary to urinary tract infection and influenza B. UA positive. Urine cultures growing E. coli UTI, blood cultures positive for E. coli. On admission patient had a lactic acid 4.4, treated with IV fluids, lactic acid down to normal. Patient's are Rocephin for UTI. Continue Continue Tamiflu for influenza B treatment. Continue supportive care with IV fluid hydration, monitor on telemetry. Cytosis is trending down. Continue to monitor CBC (2) Influenza B ICD Code: J10.1 - Influenza due to other identified influenza virus with other respiratory manifestations Status: Acute Plan: Continue Tamiflu and supportive therapy with IV fluids, supplemental oxygen to keep oxygen saturation more than 92%. Chest x-ray reviewed by me without any acute infiltrates. (3) E coli bacteremia ICD Code: R78.81 - Bacteremia Status: Acute Plan: Repeat blood cultures and follow-up.. (4) E. coli UTI ICD Code: N39.0 - Urinary tract infection, site not specified; B96.20 - Unspecified Escherichia coli [E. coli] as the cause of diseases classified elsewhere Status: Acute Plan: Continue Rocephin. Urine culture shows pansensitive E. coli. (5) Elevated troponin ICD Code: R74.8 - Abnormal levels of other serum enzymes Status: Acute (6) Chest pain ICD Code: R07.9 - Chest pain, unspecified Status: Acute Plan: Patient's troponin is elevated. They peaked at 2.35 and are now downtrending. Continue to monitor troponins, continue IV heparin drip. Cardiology recommendation provided by Dr. hall greatly appreciated. (7) Chronic diastolic heart failure ICD Code: I50.32 - Chronic diastolic (congestive) heart failure Plan: Upon review of records the patient had had a previous cardiac catheterization in 2009 which showed an EF of 60%. There is no evidence of fluid overload or acute diastolic heart failure at this time. Continue to monitor. (8) Anxiety ICD Code: F41.9 - Anxiety disorder, unspecified Status: Chronic Plan: Continue Xanax. Seems to be stable at this time. (9) HTN (hypertension) ICD Code: I10 - Essential (primary) hypertension Status: Chronic Plan: Pressure seems to be stable. Continue to monitor vital signs. Continue metoprolol. (10) Respiratory failure ICD Code: J96.90 - Respiratory failure, unspecified, unspecified whether with hypoxia or hypercapnia Plan: Patient's oxygen saturation went down into the high 80s. The patient requiring more oxygen and currently is on 5 L nasal cannula. Check ABG Repeat chest x-ray. Assessment and Plan DVT prophylaxis: The patient is currently on IV heparin drip. Once this is discontinued the patient will need to be on Lovenox subcutaneously. Discharge Planning Continue to monitor in intensive care unit. Problem Qualifiers (1) Sepsis: Qualified Codes: A41.9 - Sepsis, unspecified organism (2) HTN (hypertension): Qualified Codes: I10 - Essential (primary) hypertension (3) Respiratory failure: Qualified Codes: J96.01 - Acute respiratory failure with hypoxia Modesto Moreno MD July 10, 2017 11:51
[2017-07-10] MEDS ORDERED: POTASSIUM CHLORIDE 10 MEQ CONTROLLED RELEASE TAB PO ONE (12:00)
--- NOTE | 2017-07-10 12:39 | RADRPT ---
EXAM DATE/TIME: 07/10/2017 12:07 [facility] COMPARISON: CHEST SINGLE AP, July 08, 2017, 17:40. INDICATIONS : Short of breath, cough. MEDICAL HISTORY : Smoker. SURGICAL HISTORY : None. ENCOUNTER: Subsequent ACUITY: 2 days PAIN SCORE: 0/10 LOCATION: chest FINDINGS: Significant airspace disease is present throughout the left lung base. There is some minimal airspace disease in the right infrahilar region. Again noted are underlying chronic lung changes with pulmonary hyperinflation. Heart and mediastinal structures are stable. CONCLUSION: 1. Bilateral airspace disease especially throughout the left base. 2. COPD. Tank Gr MD on July 10, 2017 at 12:36 Board Certified Radiologist. This report was verified electronically.
[2017-07-10 13:21] LABS: TROPONIN I 1.29 NG/ML (0.02-0.05)
[2017-07-10] MEDS: ONDANSETRON ODT 4 MG TAB SL PRN (15:40)
--- NOTE | 2017-07-10 16:00 | PD.CARD.PN ---
Subjective Subjective Remarks No angina, c/o hurting all over, no SOB Objective Medications Current Medications Medications (Trade) Dose Ordered Sig/Jori Route Start Time Stop Time Status Last Admin Sodium Chloride 1,000 ml @ 100 mls/hr Q10H IV 07/08/17 19:58 07/10/17 10:41 (NS Flush) 2 ml UNSCH PRN IV FLUSH 07/08/17 20:00 (NS Flush) 2 ml BID IV FLUSH 07/08/17 21:00 07/10/17 07:53 (Tylenol) 650 mg Q4H PRN PO 07/08/17 20:00 07/09/17 12:32 (Narcan Inj) 0.4 mg UNSCH PRN IV PUSH 07/08/17 20:00 (Zofran Odt) 4 mg Q6H PRN SL 07/08/17 20:00 07/10/17 15:40 (Tamiflu) 75 mg BID PO 07/08/17 21:00 07/10/17 07:53 Ceftriaxone Sodium 1000 mg/ Sodium Chloride 100 ml @ 200 mls/hr Q24H IV 07/09/17 00:00 07/10/17 00:00 (Xanax) 0.25 mg TID PRN PO 07/08/17 20:30 (Plavix) 75 mg DAILY PO 07/09/17 09:00 07/10/17 07:53 (Lopressor) 25 mg HS PO 07/08/17 21:00 07/09/17 21:14 (Heparin Inj) 5,000 units UNSCH PRN IV PUSH 07/09/17 06:15 (Heparin Inj) 2,500 units UNSCH PRN IV PUSH 07/09/17 06:15 Heparin Sodium/ Dextrose 250 ml @ 8 mls/hr TITRATE PRN IV 07/09/17 00:15 07/10/17 04:46 ([facility] Nursing Information) Patient in critical care unit? Ass... [id number] .XX 07/09/17 02:30 07/09/17 02:30 (Chlorhexidine 2% Cloth) 3 pack DAILY@04 TOPICAL 07/09/17 04:00 07/13/17 04:01 07/10/17 03:14 (Chlorhexidine 2% Cloth) 3 pack UNSCH PRN TOPICAL 07/09/17 02:30 07/14/17 02:26 (Morphine Inj) 2 mg Q3H PRN IV PUSH 07/09/17 03:15 07/10/17 15:40 Vital Signs / I&O Vital Signs Date Time Temp Pulse Resp B/P (MAP) Pulse Ox O2 Delivery O2 Flow Rate FiO2 07/10/17 15:00 79 07/10/17 14:00 74 07/10/17 13:00 76 07/10/17 12:00 98.1 67 23 115/57 (76) 96 07/10/17 12:00 67 07/10/17 11:00 71 07/10/17 11:00 71 23 128/60 (82) 96 07/10/17 10:00 75 31 127/67 (87) 96 07/10/17 10:00 75 07/10/17 09:00 77 07/10/17 09:00 77 26 127/62 (83) 94 07/10/17 08:00 73 07/10/17 08:00 98.4 73 28 125/88 (100) 93 07/10/17 07:52 94 Nasal Cannula 5.00 07/10/17 07:00 74 26 124/62 (82) 94 07/10/17 07:00 74 07/10/17 04:00 98.8 80 30 144/66 (92) 88 07/10/17 01:18 93 Nasal Cannula 5.00 07/10/17 00:00 98.9 69 24 117/56 (76) 93 07/09/17 20:00 99.1 80 22 140/63 (88) 96 07/09/17 18:00 82 07/09/17 17:00 77 27 129/59 (82) 88 07/09/17 17:00 77 07/09/17 17:00 26 07/09/17 16:30 75 25 126/58 (80) 95 07/09/17 16:00 72 07/09/17 16:00 99.7 72 26 114/56 (75) 94 I/O 07/09/17 07/09/17 07/09/17 07/10/17 07/10/17 07/10/17 07:00 15:00 23:00 07:00 15:00 23:00 Intake Total 1406 ml 240 ml 1853 ml 1000 ml 33 ml Output Total 600 ml 300 ml 800 ml Balance 806 ml -60 ml 1053 ml 1000 ml 33 ml Intake Oral 240 ml 240 ml 240 ml IV Total 1166 ml 1613 ml 1000 ml 33 ml Output Urine Total 600 ml 300 ml 800 ml # Voids 2 # Bowel Movements 0 0 0 Physical Exam GENERAL: In mild distress SKIN: Warm and dry. HEAD: Normocephalic. EYES: No scleral icterus. No injection or drainage. NECK: Supple, trachea midline. No JVD or lymphadenopathy. CARDIOVASCULAR: Regular rate and rhythm without murmurs, gallops, or rubs. RESPIRATORY: Breath sounds equal bilaterally. No accessory muscle use. GASTROINTESTINAL: Abdomen soft, non-tender, nondistended. MUSCULOSKELETAL: No cyanosis, or edema. Laboratory Laboratory Tests Test 07/10/17 10:10 07/10/17 12:20 07/10/17 13:28 Activated Partial Thromboplast Time 37.6 SEC Total Creatine Kinase 113 U/L Troponin I 1.29 NG/ML Blood Gas Puncture Site RT RADIAL Blood Gas Patient Temperature 98.6 Blood Gas HCO3 21 mmol/L Blood Gas Base Excess -3.0 mmol/L Blood Gas Oxygen Saturation 91 % Arterial Blood pH 7.41 Arterial Blood Partial Pressure CO2 34 mmHg Arterial Blood Partial Pressure O2 65 mmHg Arterial Blood Oxygen Content 12.6 Vol % Arterial Blood Carboxyhemoglobin 0.8 % Arterial Blood Methemoglobin 1.2 % Blood Gas Hemoglobin 9.8 G/DL Oxygen Delivery Device NASAL CANNULA Blood Gas Liter Flow 5 L/M Imaging Last 24 hours Impressions Chest X-Ray 07/10/17 0000 Signed Impressions: Service Date/Time: Monday, July 10, 2017 12:07 - CONCLUSION: 1. Bilateral airspace disease especially throughout the left base. 2. COPD. Tank Gr MD Assessment and Plan Problem List: (1) Sepsis ICD Codes: A41.9 - Sepsis, unspecified organism Status: Acute (2) Influenza B ICD Codes: J10.1 - Influenza due to other identified influenza virus with other respiratory manifestations Status: Acute (3) Chest pain ICD Codes: R07.9 - Chest pain, unspecified Status: Acute (4) Elevated troponin ICD Codes: R74.8 - Abnormal levels of other serum enzymes Status: Acute (5) HTN (hypertension) ICD Codes: I10 - Essential (primary) hypertension Status: Chronic (6) Chronic diastolic heart failure ICD Codes: I50.32 - Chronic diastolic (congestive) heart failure Assessment and Plan No angina or CHF. Continue tx for sepsis and flu. Mild troponin elevation, doubt ACS at this time, DC heparin. Continue current program. Increase activity. Problem Qualifiers (1) Sepsis: Qualified Codes: A41.9 - Sepsis, unspecified organism (2) HTN (hypertension): Qualified Codes: I10 - Essential (primary) hypertension Anastasia Kim MD July 10, 2017 16:00
[2017-07-10 19:01] LABS: TROPONIN I 1.12 NG/ML (0.02-0.05)
[2017-07-10] MEDS: METOPROLOL TARTRATE 25 MG TAB PO SCH (21:48)
[2017-07-11] VITALS (14 sets, daily range): BP systolic 100–125; BP diastolic 58–65; PULSE 64–90; RESP 18–33; TEMP 98–100.5; O2SAT 92–100
[2017-07-11] MEDS: ACETAMINOPHEN 325 MG TAB PO PRN ×2 (01:31→22:27)
[2017-07-11] MEDS: cefTRIAXone INJ 1,000 MG in SODIUM CHLORIDE 0.9% INJ 100 ML IV SCH (01:31)
[2017-07-11 01:51] LABS: ALBUMIN 2.5 GM/DL (3.4-5.0); ALKALINE PHOSPHATASE 73 U/L (45-117); ALT (GPT) 33 U/L (10-53); AST (GOT) 29 U/L (15-37); BICARBONATE 23.2 MEQ/L (21.0-32.0); BLOOD UREA NITROGEN 10 MG/DL (7-18); CALCIUM 7.6 MG/DL (8.5-10.1); CHLORIDE 109 MEQ/L (98-107); CREATININE 0.54 MG/DL (0.50-1.00); GLOMERULAR FILTRATION RATE 110 ML/MIN (>89); GLUCOSE,RANDOM 104 MG/DL (74-106); SODIUM (NA) 140 MEQ/L (136-145); TOTAL BILIRUBIN ADULT 0.5 MG/DL (0.2-1.0); TOTAL PROTEIN 5.8 GM/DL (6.4-8.2)
[2017-07-11 01:53] LABS: TROPONIN I 0.85 NG/ML (0.02-0.05)
[2017-07-11] MEDS: CHLORHEXIDINE GLUCONATE 2 % 1 PACK (2 CLOTHS)(taper/protocol) TOPICAL SCH ×2 (04:00→22:28)
[2017-07-11 07:10] LABS: AUTOMATED NEUTROPHIL # 5.6 TH/MM3 (1.8-7.7); BASOPHIL % 0.6 % (0.0-2.0); EOSINOPHIL # 0.1 TH/MM3 (0-0.4); EOSINOPHIL % 1.2 % (0.0-4.0); HEMATOCRIT 27.9 % (35.0-46.0); HEMOGLOBIN 9.3 GM/DL (11.6-15.3); LYMPH % 12.6 % (9.0-44.0); LYMPHOCYTE # 0.9 TH/MM3 (1.0-4.8); MEAN CELL VOLUME 98.7 FL (80.0-100.0); MEAN CORPUSCULAR HEMOGLOBIN 33.1 PG (27.0-34.0); MEAN CORPUSCULAR HGB CONC 33.5 % (32.0-36.0); MEAN PLATELET VOLUME 9.9 FL (7.0-11.0); MONO % 5.6 % (0.0-8.0); MONOCYTE # 0.4 TH/MM3 (0-0.9); PLATELET COUNT 77 TH/MM3 (150-450); RED BLOOD COUNT 2.82 MIL/MM3 (4.00-5.30); RED CELL DISTRIBUTION WIDTH 14.1 % (11.6-17.2)
[2017-07-11 07:32] LABS: MAGNESIUM 1.9 MG/DL (1.5-2.5); PHOSPHORUS 1.8 MG/DL (2.5-4.9)
[2017-07-11] MEDS: CLOPIDOGREL 75 MG TAB PO SCH (08:58)
[2017-07-11] MEDS: ENOXAPARIN SODIUM 40 MG/0.4 ML SYRINGE SQ SCH (08:58)
[2017-07-11] MEDS: SODIUM CHLOR 0.9% 1000 ML INJ 1,000 ML IV SCH ×2 (08:59→17:58)
[2017-07-11] MEDS: OSELTAMIVIR PHOSPHATE 75 MG CAP PO SCH ×2 (08:59→20:36)
[2017-07-11] MEDS: SODIUM CHLORIDE 0.9% FLUSH 10 ML FLUSH IV FLUSH SCH ×2 (09:00→20:29)
--- NOTE | 2017-07-11 10:50 | HHI.PR ---
Subjective Remarks Follow up for E. Coli UTI and bacteremia. Patient is currently doing well. No CP , SOB, fever, chills. However, fever 100.5 was recorded once. Objective Vitals Vital Signs Date Time Temp Pulse Resp B/P (MAP) Pulse Ox O2 Delivery O2 Flow Rate FiO2 07/11/17 08:17 99 Nasal Cannula 5.00 07/11/17 06:00 72 07/11/17 04:00 98.8 64 20 100/61 (74) 96 07/11/17 04:00 64 07/11/17 02:00 71 07/11/17 00:00 100.5 71 24 116/58 (77) 94 07/11/17 00:00 71 07/10/17 22:00 86 07/10/17 20:00 99.6 77 28 135/64 (87) 95 07/10/17 20:00 77 07/10/17 18:00 79 07/10/17 17:00 82 25 133/67 (89) 96 07/10/17 17:00 82 07/10/17 16:00 79 07/10/17 16:00 98.4 79 25 128/63 (84) 93 07/10/17 15:00 79 30 136/63 (87) 95 07/10/17 15:00 79 07/10/17 14:00 74 26 119/60 (79) 99 07/10/17 14:00 74 07/10/17 13:00 76 40 96 07/10/17 13:00 76 07/10/17 12:00 98.1 67 23 115/57 (76) 96 07/10/17 12:00 67 07/10/17 11:00 71 07/10/17 11:00 71 23 128/60 (82) 96 I/O 07/10/17 07/10/17 07/10/17 07/11/17 07/11/17 07/11/17 06:59 14:59 22:59 06:59 14:59 22:59 Intake Total 1853 ml 1000 ml 1753 ml 400 ml Output Total 800 ml 625 ml Balance 1053 ml 1000 ml 1128 ml 400 ml Intake Oral 240 ml 720 ml 300 ml IV Total 1613 ml 1000 ml 1033 ml 100 ml Output Urine Total 800 ml 625 ml # Voids 3 3 # Bowel Movements 0 0 0 Result Diagram: 07/11/17 0600 07/11/17 0029 Imaging Last Impressions Chest X-Ray 07/10/17 0000 Signed Impressions: Service Date/Time: Monday, July 10, 2017 12:07 - CONCLUSION: 1. Bilateral airspace disease especially throughout the left base. 2. COPD. Tank Gr MD Objective Remarks GENERAL: Alert, Oriented x 3, NAD. SKIN: Warm and dry. HEAD: Normocephalic. EYES: No scleral icterus. No injection or drainage. NECK: Supple, trachea midline. No JVD or lymphadenopathy. CARDIOVASCULAR: Regular rate and rhythm without murmurs, gallops, or rubs. RESPIRATORY: Breath sounds equal bilaterally. No accessory muscle use. GASTROINTESTINAL: Abdomen soft, non-tender, nondistended. MUSCULOSKELETAL: No cyanosis, or edema. BACK: Nontender without obvious deformity. No CVA tenderness. Procedures None. A/P Problem List: (1) Sepsis ICD Code: A41.9 - Sepsis, unspecified organism Status: Acute (2) Influenza B ICD Code: J10.1 - Influenza due to other identified influenza virus with other respiratory manifestations Status: Acute (3) E coli bacteremia ICD Code: R78.81 - Bacteremia Status: Acute (4) E. coli UTI ICD Code: N39.0 - Urinary tract infection, site not specified; B96.20 - Unspecified Escherichia coli [E. coli] as the cause of diseases classified elsewhere Status: Acute (5) Elevated troponin ICD Code: R74.8 - Abnormal levels of other serum enzymes Status: Acute (6) Chest pain ICD Code: R07.9 - Chest pain, unspecified Status: Acute (7) Chronic diastolic heart failure ICD Code: I50.32 - Chronic diastolic (congestive) heart failure (8) Anxiety ICD Code: F41.9 - Anxiety disorder, unspecified Status: Chronic (9) HTN (hypertension) ICD Code: I10 - Essential (primary) hypertension Status: Chronic (10) Respiratory failure ICD Code: J96.90 - Respiratory failure, unspecified, unspecified whether with hypoxia or hypercapnia Assessment and Plan 76-year-old female with a past medical history significant for CHF (no recent echo for comparison), peripheral vascular disease, hypertension and anxiety presents to the emergency department for evaluation of sudden onset severe chills/fever. She was diagnosed with E. Coli UTI. Blood cx grew E. Coli as well. Troponins were elevated but cardiology indicated that troponin elevation was likely due to sepsis. Sepsis due to UTI and Bacteremia E. Coli UTI E. Coli Bacteremia - Change Abx to Ceftriaxone 2g Qday. - Repeat Blood cx today. If patient remains afebrile and blood cx negative, we can consider PO Levaquin (if sensitive) for 7 days for bacteremia. - Transfer to the floor. Wean off O2. Elevated troponin PVD - no further workup per cardiology. Continue Plavix - D/C Heparin. Anxiety - continue Alprazolam PRN. Full code. Lovenox. Problem Qualifiers (1) Sepsis: Qualified Codes: A41.9 - Sepsis, unspecified organism (2) HTN (hypertension): Qualified Codes: I10 - Essential (primary) hypertension (3) Respiratory failure: Qualified Codes: J96.01 - Acute respiratory failure with hypoxia Quiana Sarkar DO July 11, 2017 10:50 am
[2017-07-11] MEDS ORDERED: traMADol HCL 50 MG TAB PO PRN (11:45)
[2017-07-11] MEDS ORDERED: cefTRIAXone INJ 2,000 MG in SODIUM CHLORIDE 0.9% INJ 100 ML IV SCH (13:00)
[2017-07-11] MEDS ORDERED: LACTULOSE SYRUP 20 GM/30 ML CUP PO PRN (18:30)
[2017-07-11] MEDS ORDERED: MAGNESIUM HYDROXIDE SUSP 30 ML CUP PO PRN (18:30)
[2017-07-11] MEDS ORDERED: BISACODYL 10 MG SUPP RECTAL PRN (18:30)
[2017-07-11] MEDS ORDERED: NALOXONE HCL 0.4 MG/ML AMP IV PUSH PRN (18:30)
--- NOTE | 2017-07-11 19:21 | PD.CARD.PN ---
Subjective Subjective Remarks No angina, c/o hurting all over but less, no SOB, symptoms improving Objective Medications Current Medications Medications (Trade) Dose Ordered Sig/Jori Route Start Time Stop Time Status Last Admin Sodium Chloride 1,000 ml @ 100 mls/hr Q10H IV 07/08/17 19:58 07/11/17 17:58 (NS Flush) 2 ml UNSCH PRN IV FLUSH 07/08/17 20:00 (NS Flush) 2 ml BID IV FLUSH 07/08/17 21:00 07/11/17 09:00 (Tylenol) 650 mg Q4H PRN PO 07/08/17 20:00 07/11/17 01:31 (Zofran Odt) 4 mg Q6H PRN SL 07/08/17 20:00 07/10/17 15:40 (Tamiflu) 75 mg BID PO 07/08/17 21:00 07/11/17 08:59 (Xanax) 0.25 mg TID PRN PO 07/08/17 20:30 (Plavix) 75 mg DAILY PO 07/09/17 09:00 07/11/17 08:58 (Lopressor) 25 mg HS PO 07/08/17 21:00 07/10/17 21:48 ([facility] [place] Patient in critical care unit? Ass... Q361D .XX 07/09/17 02:30 07/09/17 02:30 (Chlorhexidine 2% Cloth) 3 pack DAILY@04 TOPICAL 07/09/17 04:00 07/13/17 04:01 07/11/17 04:00 (Chlorhexidine 2% Cloth) 3 pack UNSCH PRN TOPICAL 07/09/17 02:30 07/14/17 02:26 (Morphine Inj) 2 mg Q3H PRN IV PUSH 07/09/17 03:15 07/10/17 21:48 Ceftriaxone Sodium 2000 mg/ Sodium Chloride 100 ml @ 200 mls/hr Q24H IV 07/11/17 13:00 07/11/17 12:08 (Lovenox Inj) 40 mg Q24H SQ 07/11/17 09:00 07/11/17 08:58 (Ultram) 50 mg Q6H PRN PO 07/11/17 11:45 (Narcan Inj) 0.4 mg UNSCH PRN IV PUSH 07/11/17 18:30 (Milk Of Magnesia Liq) 30 ml Q12H PRN PO 07/11/17 18:30 (Senokot) 17.2 mg Q12H PRN PO 07/11/17 18:30 (Dulcolax Supp) 10 mg DAILY PRN RECTAL 07/11/17 18:30 (Lactulose Liq) 30 ml DAILY PRN PO 07/11/17 18:30 Vital Signs / I&O Vital Signs Date Time Temp Pulse Resp B/P (MAP) Pulse Ox O2 Delivery O2 Flow Rate FiO2 07/11/17 18:00 80 07/11/17 18:00 80 24 98 07/11/17 16:00 79 07/11/17 12:00 82 07/11/17 12:00 82 29 96 07/11/17 10:00 72 25 97 07/11/17 10:00 72 07/11/17 09:11 80 24 125/58 (80) 92 07/11/17 09:11 80 07/11/17 08:17 99 Nasal Cannula 5.00 07/11/17 08:00 78 33 100 07/11/17 08:00 78 07/11/17 06:00 72 07/11/17 04:00 98.8 64 20 100/61 (74) 96 07/11/17 04:00 64 07/11/17 02:00 71 07/11/17 00:00 100.5 71 24 116/58 (77) 94 07/11/17 00:00 71 07/10/17 22:00 86 07/10/17 20:00 99.6 77 28 135/64 (87) 95 07/10/17 20:00 77 I/O 07/10/17 07/10/17 07/10/17 07/11/17 07/11/17 07/11/17 07:00 15:00 23:00 07:00 15:00 23:00 Intake Total 1853 ml 1000 ml 1753 ml 400 ml 980 ml Output Total 800 ml 625 ml 1600 ml Balance 1053 ml 1000 ml 1128 ml 400 ml -620 ml Intake Oral 240 ml 720 ml 300 ml 980 ml IV Total 1613 ml 1000 ml 1033 ml 100 ml Output Urine Total 800 ml 625 ml 1600 ml # Voids 3 3 # Bowel Movements 0 0 0 Physical Exam GENERAL: In mild distress SKIN: Warm and dry. HEAD: Normocephalic. EYES: No scleral icterus. No injection or drainage. NECK: Supple, trachea midline. No JVD or lymphadenopathy. CARDIOVASCULAR: Regular rate and rhythm without murmurs, gallops, or rubs. RESPIRATORY: Breath sounds equal bilaterally. No accessory muscle use. GASTROINTESTINAL: Abdomen soft, non-tender, nondistended. MUSCULOSKELETAL: No cyanosis, or edema. Laboratory Laboratory Tests Test 07/11/17 00:29 07/11/17 06:00 07/11/17 06:30 Blood Urea Nitrogen 10 MG/DL Creatinine 0.54 MG/DL Random Glucose 104 MG/DL Total Protein 5.8 GM/DL Albumin 2.5 GM/DL Calcium Level 7.6 MG/DL Alkaline Phosphatase 73 U/L Aspartate Amino Transf (AST/SGOT) 29 U/L Alanine Aminotransferase (ALT/SGPT) 33 U/L Total Bilirubin 0.5 MG/DL Sodium Level 140 MEQ/L Potassium Level 3.8 MEQ/L Chloride Level 109 MEQ/L Carbon Dioxide Level 23.2 MEQ/L Anion Gap 8 MEQ/L Estimat Glomerular Filtration Rate 110 ML/MIN Total Creatine Kinase 87 U/L Troponin I 0.85 NG/ML White Blood Count 7.0 TH/MM3 Red Blood Count 2.82 MIL/MM3 Hemoglobin 9.3 GM/DL Hematocrit 27.9 % Mean Corpuscular Volume 98.7 FL Mean Corpuscular Hemoglobin 33.1 PG Mean Corpuscular Hemoglobin Concent 33.5 % Red Cell Distribution Width 14.1 % Platelet Count 77 TH/MM3 Mean Platelet Volume 9.9 FL Neutrophils (%) (Auto) 80.0 % Lymphocytes (%) (Auto) 12.6 % Monocytes (%) (Auto) 5.6 % Eosinophils (%) (Auto) 1.2 % Basophils (%) (Auto) 0.6 % Neutrophils # (Auto) 5.6 TH/MM3 Lymphocytes # (Auto) 0.9 TH/MM3 Monocytes # (Auto) 0.4 TH/MM3 Eosinophils # (Auto) 0.1 TH/MM3 Basophils # (Auto) 0.0 TH/MM3 CBC Comment AUTO DIFF Differential Comment AUTO DIFF CONFIRMED Phosphorus Level 1.8 MG/DL Magnesium Level 1.9 MG/DL Assessment and Plan Problem List: (1) Sepsis ICD Codes: A41.9 - Sepsis, unspecified organism Status: Acute (2) Influenza B ICD Codes: J10.1 - Influenza due to other identified influenza virus with other respiratory manifestations Status: Acute (3) Chest pain ICD Codes: R07.9 - Chest pain, unspecified Status: Acute (4) Elevated troponin ICD Codes: R74.8 - Abnormal levels of other serum enzymes Status: Acute (5) HTN (hypertension) ICD Codes: I10 - Essential (primary) hypertension Status: Chronic (6) Chronic diastolic heart failure ICD Codes: I50.32 - Chronic diastolic (congestive) heart failure Assessment and Plan No new cardiac symptoms. No angina or CHF, remains stable from cardiac standpoint. Mild troponin elevation, doubt ACS at this time. Continue tx for sepsis and flu. Continue current program. Increase activity, PT. Problem Qualifiers (1) Sepsis: Qualified Codes: A41.9 - Sepsis, unspecified organism (2) HTN (hypertension): Qualified Codes: I10 - Essential (primary) hypertension Anastasia Kim MD July 11, 2017 19:20
[2017-07-11] MEDS: METOPROLOL TARTRATE 25 MG TAB PO SCH (20:36)
[2017-07-11] MEDS: SENNOSIDES 8.6 MG TAB PO PRN (20:36)
[2017-07-11] MEDS: ALPRAZolam 0.25 MG TAB PO PRN (22:27)
[2017-07-12] VITALS: BP 97/54; PULSE 64; RESP 18; TEMP 97.4; O2SAT 91
[2017-07-12] MEDS: SODIUM CHLOR 0.9% 1000 ML INJ 1,000 ML IV SCH ×3 (03:05→19:05)
[2017-07-12 04:00] VITALS: BP 147/67; PULSE 76; RESP 18; TEMP 98.9; O2SAT 91
[2017-07-12 08:00] VITALS: BP 133/65; PULSE 76; RESP 18; TEMP 98.3; O2SAT 93
[2017-07-12] MEDS: ONDANSETRON ODT 4 MG TAB SL PRN (09:36)
[2017-07-12] MEDS: SODIUM CHLORIDE 0.9% FLUSH 10 ML FLUSH IV FLUSH SCH ×2 (09:36→21:00)
[2017-07-12] MEDS: ACETAMINOPHEN 325 MG TAB PO PRN ×3 (09:37→22:25)
[2017-07-12] MEDS: CLOPIDOGREL 75 MG TAB PO SCH (09:37)
[2017-07-12] MEDS: ENOXAPARIN SODIUM 40 MG/0.4 ML SYRINGE SQ SCH (09:38)
[2017-07-12] MEDS: ALPRAZolam 0.25 MG TAB PO PRN ×2 (09:39→19:04)
[2017-07-12] MEDS: SENNOSIDES 8.6 MG TAB PO PRN (09:41)
[2017-07-12] MEDS: OSELTAMIVIR PHOSPHATE 75 MG CAP PO SCH ×2 (10:12→22:20)
--- NOTE | 2017-07-12 10:41 | HHI.PR ---
Subjective Remarks Follow up for E. Coli UTI and bacteremia and elevated troponin. Patient complains of nausea, constipation and generalized pain. No fever, chills. No chest pain, SOB. Objective Vitals Vital Signs Date Time Temp Pulse Resp B/P (MAP) Pulse Ox O2 Delivery O2 Flow Rate FiO2 07/12/17 08:00 98.3 76 18 133/65 (87) 93 07/12/17 04:00 98.9 76 18 147/67 (93) 91 07/12/17 00:00 97.4 64 18 97/54 (68) 91 07/11/17 22:04 98.7 66 18 116/59 (78) 93 07/11/17 20:00 98.0 90 20 114/65 (81) 96 07/11/17 20:00 90 07/11/17 19:45 97 Nasal Cannula 2.00 07/11/17 18:00 80 07/11/17 18:00 80 24 98 07/11/17 16:00 79 07/11/17 12:00 82 07/11/17 12:00 82 29 96 I/O 07/11/17 07/11/17 07/11/17 07/12/17 07/12/17 07/12/17 07:00 15:00 23:00 07:00 15:00 23:00 Intake Total 400 ml 980 ml Output Total 1600 ml Balance 400 ml -620 ml Intake Oral 300 ml 980 ml IV Total 100 ml Output Urine Total 1600 ml # Voids 3 1 2 # Bowel Movements 0 Result Diagram: 07/11/17 0600 07/11/17 0029 Imaging Last Impressions Chest X-Ray 07/10/17 0000 Signed Impressions: Service Date/Time: Monday, July 10, 2017 12:07 - CONCLUSION: 1. Bilateral airspace disease especially throughout the left base. 2. COPD. Tank Gr MD Objective Remarks GENERAL: Alert, Oriented x 3, NAD. SKIN: Warm and dry. HEAD: Normocephalic. EYES: No scleral icterus. No injection or drainage. NECK: Supple, trachea midline. No JVD or lymphadenopathy. CARDIOVASCULAR: Regular rate and rhythm without murmurs, gallops, or rubs. RESPIRATORY: Breath sounds equal bilaterally. No accessory muscle use. GASTROINTESTINAL: Abdomen soft, non-tender, nondistended. MUSCULOSKELETAL: No cyanosis, or edema. BACK: Nontender without obvious deformity. No CVA tenderness. Procedures None. A/P Problem List: (1) Sepsis ICD Code: A41.9 - Sepsis, unspecified organism Status: Acute (2) Influenza B ICD Code: J10.1 - Influenza due to other identified influenza virus with other respiratory manifestations Status: Acute (3) E coli bacteremia ICD Code: R78.81 - Bacteremia Status: Acute (4) E. coli UTI ICD Code: N39.0 - Urinary tract infection, site not specified; B96.20 - Unspecified Escherichia coli [E. coli] as the cause of diseases classified elsewhere Status: Acute (5) Elevated troponin ICD Code: R74.8 - Abnormal levels of other serum enzymes Status: Acute (6) Chest pain ICD Code: R07.9 - Chest pain, unspecified Status: Acute (7) Chronic diastolic heart failure ICD Code: I50.32 - Chronic diastolic (congestive) heart failure (8) Anxiety ICD Code: F41.9 - Anxiety disorder, unspecified Status: Chronic (9) HTN (hypertension) ICD Code: I10 - Essential (primary) hypertension Status: Chronic (10) Respiratory failure ICD Code: J96.90 - Respiratory failure, unspecified, unspecified whether with hypoxia or hypercapnia Assessment and Plan 76-year-old female with a past medical history significant for CHF (no recent echo for comparison), peripheral vascular disease, hypertension and anxiety presents to the emergency department for evaluation of sudden onset severe chills/fever. She was diagnosed with E. Coli UTI. Blood cx grew E. Coli as well. Troponins were elevated but cardiology indicated that troponin elevation was likely due to sepsis. Sepsis due to UTI and Bacteremia E. Coli UTI E. Coli Bacteremia Influenza B - Currently on ceftriaxone 2 g daily. Blood cultures negative from 2017. - E. coli sensitive to fluoroquinolones. Will switch antibiotics to Levaquin 750 mg daily for 7 days. - Continue Tamiflu 75 mg twice daily Elevated troponin PVD - no further workup per cardiology. Continue Plavix - D/C Heparin. Anxiety - continue Alprazolam PRN. Full code. Lovenox. Problem Qualifiers (1) Sepsis: Qualified Codes: A41.9 - Sepsis, unspecified organism (2) HTN (hypertension): Qualified Codes: I10 - Essential (primary) hypertension (3) Respiratory failure: Qualified Codes: J96.01 - Acute respiratory failure with hypoxia Quiana Sarkar DO July 12, 2017 10:41 am
[2017-07-12 11:55] VITALS: BP 130/61; PULSE 73; RESP 18; TEMP 98.7; O2SAT 92
[2017-07-12] MEDS: LEVOFLOXACIN 750 MG TAB PO SCH (12:49)
[2017-07-12] MEDS ORDERED: TRAM50 PO (13:50)
[2017-07-12] MEDS ORDERED: LEVA750T9 PO (13:50)
[2017-07-12 16:00] VITALS: BP 155/70; PULSE 78; RESP 18; TEMP 97.7; O2SAT 96
--- NOTE | 2017-07-12 19:52 | PD.CARD.PN ---
Subjective Subjective Remarks No angina or SOB, still c/o generalized pain and weakness Objective Medications Current Medications Medications (Trade) Dose Ordered Sig/Jori Route Start Time Stop Time Status Last Admin Sodium Chloride 1,000 ml @ 100 mls/hr Q10H IV 07/08/17 19:58 07/12/17 19:05 (NS Flush) 2 ml UNSCH PRN IV FLUSH 07/08/17 20:00 (NS Flush) 2 ml BID IV FLUSH 07/08/17 21:00 07/12/17 09:36 (Tylenol) 650 mg Q4H PRN PO 07/08/17 20:00 07/12/17 16:34 (Zofran Odt) 4 mg Q6H PRN SL 07/08/17 20:00 07/12/17 09:36 (Tamiflu) 75 mg BID PO 07/08/17 21:00 07/12/17 10:12 (Xanax) 0.25 mg TID PRN PO 07/08/17 20:30 07/12/17 19:04 (Plavix) 75 mg DAILY PO 07/09/17 09:00 07/12/17 09:37 (Lopressor) 25 mg HS PO 07/08/17 21:00 07/11/17 20:36 ([facility] [place] Nursing Information) Patient in critical care unit? Ass... Q361D .XX 07/09/17 02:30 07/09/17 02:30 (Chlorhexidine 2% Cloth) 3 pack DAILY@04 TOPICAL 07/09/17 04:00 07/13/17 04:01 07/11/17 04:00 (Chlorhexidine 2% Cloth) 3 pack UNSCH PRN TOPICAL 07/09/17 02:30 07/14/17 02:26 (Morphine Inj) 2 mg Q3H PRN IV PUSH 07/09/17 03:15 07/10/17 21:48 (Lovenox Inj) 40 mg Q24H SQ 07/11/17 09:00 07/12/17 09:38 (Ultram) 50 mg Q6H PRN PO 07/11/17 11:45 07/11/17 20:36 (Narcan Inj) 0.4 mg UNSCH PRN IV PUSH 07/11/17 18:30 (Milk Of Magnesia Liq) 30 ml Q12H PRN PO 07/11/17 18:30 07/12/17 13:52 (Senokot) 17.2 mg Q12H PRN PO 07/11/17 18:30 07/12/17 09:41 (Dulcolax Supp) 10 mg DAILY PRN RECTAL 07/11/17 18:30 (Lactulose Liq) 30 ml DAILY PRN PO 07/11/17 18:30 (Levaquin) 750 mg DAILY PO 07/12/17 13:00 07/19/17 12:59 07/12/17 12:49 Vital Signs / I&O Vital Signs Date Time Temp Pulse Resp B/P (MAP) Pulse Ox O2 Delivery O2 Flow Rate FiO2 07/12/17 18:06 Nasal Cannula 2.00 07/12/17 16:00 97.7 78 18 155/70 (98) 96 07/12/17 11:55 98.7 73 18 130/61 (84) 92 07/12/17 08:00 98.3 76 18 133/65 (87) 93 07/12/17 04:00 98.9 76 18 147/67 (93) 91 07/12/17 00:00 97.4 64 18 97/54 (68) 91 07/11/17 22:04 98.7 66 18 116/59 (78) 93 07/11/17 20:00 98.0 90 20 114/65 (81) 96 07/11/17 20:00 90 I/O 07/11/17 07/11/17 07/11/17 07/12/17 07/12/17 07/12/17 07:00 15:00 23:00 07:00 15:00 23:00 Intake Total 400 ml 980 ml 1000 ml Output Total 1600 ml 4 ml Balance 400 ml -620 ml -4 ml 1000 ml Intake Oral 300 ml 980 ml IV Total 100 ml 1000 ml Output Urine Total 1600 ml 4 ml # Voids 3 1 2 # Bowel Movements 0 1 Physical Exam GENERAL: In NAD SKIN: Warm and dry. HEAD: Normocephalic. EYES: No scleral icterus. No injection or drainage. NECK: Supple, trachea midline. No JVD or lymphadenopathy. CARDIOVASCULAR: Regular rate and rhythm without murmurs, gallops, or rubs. RESPIRATORY: Breath sounds equal bilaterally. No accessory muscle use. GASTROINTESTINAL: Abdomen soft, non-tender, nondistended. MUSCULOSKELETAL: No cyanosis, or edema. Assessment and Plan Problem List: (1) Sepsis ICD Codes: A41.9 - Sepsis, unspecified organism Status: Acute (2) Influenza B ICD Codes: J10.1 - Influenza due to other identified influenza virus with other respiratory manifestations Status: Acute (3) Chest pain ICD Codes: R07.9 - Chest pain, unspecified Status: Acute (4) Elevated troponin ICD Codes: R74.8 - Abnormal levels of other serum enzymes Status: Acute (5) HTN (hypertension) ICD Codes: I10 - Essential (primary) hypertension Status: Chronic (6) Chronic diastolic heart failure ICD Codes: I50.32 - Chronic diastolic (congestive) heart failure Assessment and Plan Overall slow improvement. No new cardiac symptoms. No angina or CHF, remains stable from cardiac standpoint. Mild troponin elevation, no evidence of ACS at this time. Continue tx for sepsis and flu. Continue monitoring. Increase activity, PT. Problem Qualifiers (1) Sepsis: Qualified Codes: A41.9 - Sepsis, unspecified organism (2) HTN (hypertension): Qualified Codes: I10 - Essential (primary) hypertension Anastasia Kim MD July 12, 2017 19:52
[2017-07-12 20:00] VITALS: BP 131/58; PULSE 73; RESP 18; TEMP 98.3; O2SAT 95
[2017-07-12] MEDS: METOPROLOL TARTRATE 25 MG TAB PO SCH (22:20)
[2017-07-12] MEDS: CHLORHEXIDINE GLUCONATE 2 % 1 PACK (2 CLOTHS)(taper/protocol) TOPICAL SCH (22:23)
[2017-07-13] VITALS: BP 135/63; PULSE 66; RESP 18; TEMP 99; O2SAT 93
[2017-07-13 04:00] VITALS: BP 119/51; PULSE 77; RESP 18; TEMP 98.5; O2SAT 91
--- NOTE | 2017-07-13 08:21 | HHI.DS ---
Discharge Summary Admission Date July 08, 2017 at 9:35 pm Discharge Date: July 13, 2017 Admitting Diagnosis SEPSIS; UTI (1) Sepsis ICD Code: A41.9 - Sepsis, unspecified organism Status: Acute (2) Influenza B ICD Code: J10.1 - Influenza due to other identified influenza virus with other respiratory manifestations Status: Acute (3) E coli bacteremia ICD Code: R78.81 - Bacteremia Status: Acute (4) E. coli UTI ICD Code: N39.0 - Urinary tract infection, site not specified; B96.20 - Unspecified Escherichia coli [E. coli] as the cause of diseases classified elsewhere Status: Acute (5) Elevated troponin ICD Code: R74.8 - Abnormal levels of other serum enzymes Status: Acute (6) Chest pain ICD Code: R07.9 - Chest pain, unspecified Status: Acute (7) Chronic diastolic heart failure ICD Code: I50.32 - Chronic diastolic (congestive) heart failure (8) Anxiety ICD Code: F41.9 - Anxiety disorder, unspecified Status: Chronic (9) HTN (hypertension) ICD Code: I10 - Essential (primary) hypertension Status: Chronic (10) Respiratory failure ICD Code: J96.90 - Respiratory failure, unspecified, unspecified whether with hypoxia or hypercapnia Procedures None. Brief History - From Admission 76-year-old female with a past medical history significant for CHF (no recent echo for comparison), peripheral vascular disease, hypertension and anxiety presents to the emergency department for evaluation of sudden onset severe chills/fever. The patient reports that approximately 4 PM this afternoon she had severe shaking and felt as if she could not get warm. She also endorses a shortness of breath and chest pain/tightness that she describes as a substernal pressure that occurred during this time. The patient denies any cough. No abdominal pain. No nausea/vomiting/diarrhea. No dysuria. No lateralizing signs/symptoms. CBC/BMP: 07/11/17 0600 07/11/17 0029 Significant Findings Laboratory Tests Test 07/10/17 10:10 07/10/17 12:20 5/15/18 13:28 07/10/17 18:10 Activated Partial Thromboplast Time 37.6 SEC (24.3-30.1) Troponin I 1.29 NG/ML (0.02-0.05) 1.12 NG/ML (0.02-0.05) Blood Gas HCO3 21 mmol/L (22-26) Blood Gas Base Excess -3.0 mmol/L (-2-2) Arterial Blood Partial Pressure CO2 34 mmHg (38-42) Blood Gas Hemoglobin 9.8 G/DL (12.0-16.0) Test 07/11/17 00:29 07/11/17 06:00 07/11/17 06:30 Total Protein 5.8 GM/DL (6.4-8.2) Albumin 2.5 GM/DL (3.4-5.0) Calcium Level 7.6 MG/DL (8.5-10.1) Chloride Level 109 MEQ/L (98-107) Troponin I 0.85 NG/ML (0.02-0.05) Red Blood Count 2.82 MIL/MM3 (4.00-5.30) Hemoglobin 9.3 GM/DL (11.6-15.3) Hematocrit 27.9 % (35.0-46.0) Platelet Count 77 TH/MM3 (150-450) Neutrophils (%) (Auto) 80.0 % (16.0-70.0) Lymphocytes # (Auto) 0.9 TH/MM3 (1.0-4.8) Phosphorus Level 1.8 MG/DL (2.5-4.9) Imaging Last Impressions Chest X-Ray 07/10/17 0000 Signed Impressions: Service Date/Time: Monday, July 10, 2017 12:07 - CONCLUSION: 1. Bilateral airspace disease especially throughout the left base. 2. COPD. Tank Gr MD PE at Discharge GENERAL: Alert, Oriented x 3, NAD. SKIN: Warm and dry. HEAD: Normocephalic. EYES: No scleral icterus. No injection or drainage. NECK: Supple, trachea midline. No JVD or lymphadenopathy. CARDIOVASCULAR: Regular rate and rhythm without murmurs, gallops, or rubs. RESPIRATORY: Breath sounds equal bilaterally. No accessory muscle use. GASTROINTESTINAL: Abdomen soft, non-tender, nondistended. MUSCULOSKELETAL: No cyanosis, or edema. BACK: Nontender without obvious deformity. No CVA tenderness. Pt update on day of discharge Patient is currently doing well. No acute concerns. No fever, chills. Hospital Course 76-year-old female with a past medical history significant for CHF (no recent echo for comparison), peripheral vascular disease, hypertension and anxiety presents to the emergency department for evaluation of sudden onset severe chills/fever. She was diagnosed with E. Coli UTI. Blood cx grew E. Coli as well. Troponins were elevated but cardiology indicated that troponin elevation was likely due to sepsis. Sepsis due to UTI and Bacteremia E. Coli UTI E. Coli Bacteremia Influenza B - Receieved ceftriaxone 2 g daily. Blood cultures negative from 07/10/2017. - E. coli sensitive to fluoroquinolones. We switched to Levaquin and will continue for 7 days post discharge. - Continue Tamiflu 75 mg twice daily - finished total 10 doses. Elevated troponin PVD - no further workup per cardiology. Continue Plavix Anxiety - continue Alprazolam PRN. Full code. Lovenox. Pt Condition on Discharge: Good Discharge Disposition: Discharge Home Discharge Time: <= 30 minutes Discharge Instructions DIET: Follow Instructions for: Heart Healthy Diet Activities you can perform: Regular-No Restrictions Follow up Referrals: PCP Follow-up - 1 Week PCP Follow-up New Medications: Levofloxacin (Levaquin) 750 Mg Tablet 750 MG PO DAILY for Infection, #7 TAB Tramadol (Ultram) 50 Mg Tab 50 MG PO Q6H PRN for PAIN SCALE 5 TO 10, #15 TAB Continued Medications: Alprazolam (Xanax) 0.25 Mg Tab 0.25 MG PO TID PRN for ANXIETY, TAB 0 Refills Clopidogrel (Plavix) 75 Mg Tab 75 MG PO DAILY for Blood Clot Prevention, #30 TAB 0 Refills Metoprolol Tartrate (Metoprolol Tartrate) 25 Mg Tab 25 MG PO HS, #30 TAB 0 Refills Quiana Sarkar DO July 13, 2017 08:21
[2017-07-13 08:25] VITALS: BP 152/64; PULSE 71; RESP 18; TEMP 98.6; O2SAT 90
[2017-07-13 08:46] VITALS: O2SAT 95
[2017-07-13] MEDS: SODIUM CHLORIDE 0.9% FLUSH 10 ML FLUSH IV FLUSH SCH (09:00)
[2017-07-13] MEDS: LEVOFLOXACIN 750 MG TAB PO SCH (09:02)
[2017-07-13] MEDS: ACETAMINOPHEN 325 MG TAB PO PRN (09:02)
[2017-07-13] MEDS: OSELTAMIVIR PHOSPHATE 75 MG CAP PO SCH (09:02)
[2017-07-13] MEDS: CLOPIDOGREL 75 MG TAB PO SCH (09:02)
[2017-07-13] MEDS: ENOXAPARIN SODIUM 40 MG/0.4 ML SYRINGE SQ SCH (09:03)
[2017-07-13] MEDS: SODIUM CHLOR 0.9% 1000 ML INJ 1,000 ML IV SCH (09:58)
--- NOTE | 2017-07-13 10:36 | HHI.FF ---
Face to Face Verification Diagnosis: (1) Sepsis (2) Influenza B (3) E coli bacteremia (4) E. coli UTI Home Health Nursing Order: Medical education Signs/symptoms of disease process Medication education-adverse effect Nursing assessment with vital signs I have seen patient Glendy Adames on 07/13/17. My clinical findings support the need for the requested home health care services because: Deconditioned w/ increased weakness Limited ability to care for self Need for psychosocial assistance Impaired cognition/judgement High risk of falls Infection w/ risk of complications I certify that my clinical findings support that this patient is homebound because: Unsafe to leave home unassisted Need for psychosocial assistance Unable to use public transportation Quiana Sarkar DO July 13, 2017 10:36 am
== END 2017-07-13 11:47 | disposition home or self-care (01) | DRG 871 ==
LOC: NEPC 17:13 → NEDA 19:44 → UNDOADMIN 19:44 → NEDA 19:59 → INTOOBSV 19:59 → NEPFCDU 20:43 → OBSVTOIN 21:35 → HIMN 07-09 02:20 → N05A 07-11 21:36
PROVIDERS: ADMIT Hospitalist; ATTEND Hospitalist
DX: A41.9 Sepsis, unspecified organism (principal); J96.01 Acute respiratory failure with hypoxia; I50.32 Chronic diastolic (congestive) heart failure; N39.0 Urinary tract infection, site not specified; I11.0 Hypertensive heart disease with heart failure; B96.20 Unspecified Escherichia coli [E. coli] as the cause of diseases classified elsewhere; J10.1 Influenza due to other identified influenza virus with other respiratory manifestations; F17.210 Nicotine dependence, cigarettes, uncomplicated; I25.10 Atherosclerotic heart disease of native coronary artery without angina pectoris; F41.9 Anxiety disorder, unspecified; I73.9 Peripheral vascular disease, unspecified; Z86.718 Personal history of other venous thrombosis and embolism; R53.1 Weakness; Z90.710 Acquired absence of both cervix and uterus; Z90.49 Acquired absence of other specified parts of digestive tract; Z79.02 Long term (current) use of antithrombotics/antiplatelets
CPT/HCPCS: 36600; 71045; 80048; 80053; 81001; 82550; 82805; 83605; 83735; 84100; 84484; 85007; 85025; 85027; 85610; 85730; 87040; 87077; 87086; 87186; 87205; 87641; 87804; 93005; 96365; 96368; J0692; J0696; J1644; J1650; J2270; J2543; J3370; J7030; J7050